=== PATIENT | female | born 1975 | race Caucasian/White ===

== ENCOUNTER 2016-06-20 08:45 | Day surgery (SDC) | payer BC ==
[2016-06-20] MEDS ORDERED: Sodium Chloride 0.9% 10 ML Syringe FLUSH PRN (09:00)
[2016-06-20] MEDS ORDERED: Lactated Ringers 1,000 ML IV SCH (09:00)
--- NOTE | 2016-06-20 09:42 | PCM.PN ---
- General Info Date of Service: 06/20/16 - Review of Systems Systems Review Comment:: 41-year-old female referred for her first screening colonoscopy. She has an increased risk of developing colon polyps because of a family history of this condition in 2 sisters. The patient has been recently asymptomatic. She is medically stable to proceed today with no significant change from her recent history and physical which is reviewed. I discussed the proposed colonoscopy with the patient. Indications and risks reviewed. These included but were not limited to bleeding and GI injury. She agrees to proceed. - Patient Data Vitals - most recent: Last Vital Signs Temp 98.8 F 06/20/16 09:08 Pulse 71 06/20/16 09:08 Resp 20 06/20/16 09:08 BP 120/68 06/20/16 09:08 Pulse Ox 98 06/20/16 09:08 Weight - most recent: 77.564 kg Med Orders - Current: Current Medications Lactated Ringer's (Ringers, Lactated) 1,000 mls @ 125 mls/hr IV ASDIRECTED [facility] Last Admin: 06/20/16 09:30 Dose: 125 mls/hr Sodium Chloride (Saline Flush) 10 ml FLUSH ASDIRECTED PRN PRN Reason: Keep Vein Open - Problem List Review Problem List Initiated/Reviewed/Updated: Yes - Assessment Assessment:: Family history of colon polyps - Plan Plan:: Colonoscopy
[2016-06-20] MEDS ORDERED: Midazolam 1 MG/ML 2 ML SDV ONE ×2 (09:53→09:57)
[2016-06-20] MEDS ORDERED: Propofol 200 MG/20 ML SDV ONE (09:54)
--- NOTE | 2016-06-20 10:59 | PCM.OPNOTE ---
- General Post-Op/Procedure Note Date of Surgery/Procedure: 06/20/16 Operative Procedure(s): Colonoscopy with Polypectomy Findings: 2 small polyps were noted during the exam. One at the splenic flexure and one in the sigmoid colon. The colon otherwise appeared normal. Pre Op Diagnosis: Family history of colon polyps Post-Op Diagnosis: Colon polyps Anesthesia Technique: MAC Primary Surgeon: Faisal Dawson Pathology: Colon polyps Output, Urine Amount: 0 EBL in mLs: 0 Complications: None Condition: Good Free Text/Narrative:: Intake & Output 06/19/16 06/20/16 06/20/16 22:59 06:59 14:59 Intake Total 700 Balance 700
[2016-06-20 11:57] VITALS: BP 108/68
--- NOTE | 2016-06-20 14:21 | OR ---
Date of Procedure: 06/20/2016 PREOPERATIVE DIAGNOSIS: Family history of colon polyps. POSTOPERATIVE DIAGNOSIS: Colon polyps. OPERATION PERFORMED: Colonoscopy with polypectomy. INDICATIONS FOR SURGERY: This 41-year-old female has two siblings who had colon polyps recently removed. This patient comes for her initial screening colonoscopy. FINDINGS: Two polyps are noted during this exam. There is a 4-mm sessile polyp at the splenic flexure and another 4-mm pedunculated polyp at that the sigmoid colon, 30 cm from the anal verge. The remainder of the colon appears normal. PROCEDURE: The patient was taken to the operating room. She was given intravenous sedation, and with her in the left lateral decubitus position, digital rectal exam was performed showing no rectal masses. The Olympus colonoscope was inserted into the rectum. Retroflexed examination of the rectal canal was performed. The scope was then carefully advanced under direct visualization through the entire length of the colon until the cecum was reached. This was somewhat difficult because of the tortuous nature of her colon, but eventually the cecum was able to be reached. Cecal acquisition is confirmed by noting the normal internal cecal anatomy including the appendiceal orifice and ileocecal valve. The light was also noted to transilluminate the abdominal wall in the right lower quadrant. After examining the cecum, the scope was slowly withdrawn sequentially re-examining the colonic segments. The two above-described polyps were identified during withdrawal of the scope, and each polyp is in turn removed with cautery snare as encountered. Each polyp was also retrieved and will be submitted for pathology. There was no sign of any complication during the procedure. After the entire colon and rectum had been fully examined, the scope was removed and the patient was taken from the operating room in satisfactory condition. ESTIMATED BLOOD LOSS: Zero. COMPLICATIONS: None. PROGNOSIS: Good. LIU Dawson MD /[id number]
== END 2016-06-20 11:44 | disposition home or self-care (01) ==
LOC: LL.SDS 08:45
PROVIDERS: ATTEND Surgery
DX: D12.3 Benign neoplasm of transverse colon (principal); K51.40 Inflammatory polyps of colon without complications; I10 Essential (primary) hypertension; F32.9 Major depressive disorder, single episode, unspecified; E78.5 Hyperlipidemia, unspecified; E66.9 Obesity, unspecified; Z98.84 Bariatric surgery status; Z88.0 Allergy status to penicillin; Z88.8 Allergy status to other drugs, medicaments and biological substances; Z98.51 Tubal ligation status; Z98.890 Other specified postprocedural states; Z79.899 Other long term (current) drug therapy
CPT/HCPCS: 45385; J2250; J7120

== ENCOUNTER 2017-06-23 09:18 | Inpatient (IN) | payer BC ==
[2017-06-23] MEDS ORDERED: Iopamidol 612 MG/ML 100 ML Bottle IVPUSH ONE (10:28)
[2017-06-23] MEDS ORDERED: Sodium Chloride 0.9% 10 ML Syringe FLUSH ONE (10:45)
--- NOTE | 2017-06-23 13:25 | PCM.HP ---
H&P History of Present Illness - General Date of Service: 06/23/17 Admit Problem/Dx: Admission Diagnosis/Problem Admission Diagnosis/Problem Abdominal pain Source of Information: Patient - History of Present Illness Initial Comments - Free Text/Narative: 06/23/2017 Patient presents to the clinic with abdominal pain which started 4 days ago, patient thought she was constipated and took some stool softeners but symptoms have gotten worse. Started with fever 2 days ago, up to 102.4 and now pain is much more severe in the mid abdominal area into the RLQ area. Started with N/V this morning. has a history of altered stool patterns, going from constipation to diarrhea. Colonoscopy was done 06/2016 with tubular adenoma polyp removed. No travel outside of the country and spouse is not sick at home. Onset of Symptoms: Reports: Gradual Duration of Symptoms: Reports: Getting Worse Location: Reports: Abdomen Quality: Reports: Sharp, Stabbing Severity: Severe Improves with: Reports: Rest Worsens with: Reports: Medication Associated Symptoms: Reports: Fever/Chills, Loss of Appetite, Nausea/Vomiting Bilateral Abdominal Pain Score (Numeric/FACES): 7 - Related Data Allergies/Adverse Reactions: Allergies Allergy/AdvReac Type Severity Reaction Status Date / Time hydrocodone Allergy Hives Verified 06/23/17 12:52 Penicillins Allergy Hives Verified 06/23/17 12:52 Home Medications: Home Meds Acyclovir [Zovirax] 400 mg PO TID PRN 06/20/16 [History] Escitalopram [Lexapro] 20 mg PO DAILY 06/20/16 [History] Multivitamins [Tab-A-Sarah] 3 tab PO DAILY 06/20/16 [History] Pramipexole Di-HCl [Mirapex] 3 tab PO BEDTIME 06/20/16 [History] buPROPion [Wellbutrin] 100 tab PO DAILY 06/20/16 [History] Past Medical History Cardiovascular History: Reports: Hypertension Other Gastrointestinal History: status post gastric bypass, gallbladder removal, Neurological History: Reports: Migraines Psychiatric History: Reports: Depression Other Psychiatric History: does have the restless leg syndrome - Past Surgical History HEENT Surgical History: Reports: Tonsillectomy Other HEENT Surgeries/Procedures: wisdon teeth removed GI Surgical History: Reports: Cholecystectomy Female Surgical History: Reports: Tubal Ligation Musculoskeletal Surgical History: Reports: Arthroscopic Knee Social & Family History - Family History Cardiac: Reports: CAD GI: Reports: Colon Polyps - Tobacco Use Smoking Status *Q: Former Smoker Years of Tobacco use: 9 Packs/Tins Daily: 1 Used Tobacco, but Quit: Yes Month/Year Tobacco Last Used: 2000 Second Hand Smoke Exposure: No - Caffeine Use Caffeine Use: Reports: None - Recreational Drug Use Recreational Drug Use: No H&P Review of Systems - Review of Systems: Review Of Systems: See Below General: Reports: Fever, Weakness, Decreased Appetite HEENT: Reports: No Symptoms Pulmonary: Reports: No Symptoms Cardiovascular: Reports: No Symptoms Gastrointestinal: Reports: Abdominal Pain, Nausea, Vomiting Genitourinary: Reports: No Symptoms Musculoskeletal: Reports: No Symptoms Skin: Reports: No Symptoms Psychiatric: Reports: No Symptoms Neurological: Reports: No Symptoms Hematologic/Lymphatic: Reports: No Symptoms Immunologic: Reports: No Symptoms Exam - Exam Exam: See Below - Vital Signs Vital Signs: Last Vital Signs Temp 98.6 F 06/23/17 13:05 Pulse 60 06/23/17 13:05 Resp 18 06/23/17 13:05 BP 113/60 06/23/17 13:05 Pulse Ox 95 06/23/17 13:05 Weight: 182 lb 3.2 oz - Exam General: Alert, Oriented, Cooperative, Moderate Distress HEENT: Conjunctiva Clear, EACs Clear, EOMI Neck: Supple, Trachea Midline Lungs: Clear to Auscultation, Normal Respiratory Effort Cardiovascular: Regular Rate, Regular Rhythm GI/Abdominal Exam: Normal Bowel Sounds, Soft, No Organomegaly, No Distention, Guarding, Tender Peripheral Pulses: 2+: Dorsalis Pedis (L), Dorsalis Pedis (R) Skin: Warm, Dry, Intact Neuro Extensive - Mental Status: Alert, Oriented x3, Normal Mood/Affect, Normal Cognition, Memory Intact Neuro Extensive - Motor, Sensory, Reflexes: CN II-XII Intact, Normal Gait, Normal Reflexes Psychiatric: Alert, Normal Affect, Normal Mood *Q Meaningful Use (ADM) - VTE *Q VTE Criteria *Q: - Stroke *Q Stroke Criteria *Q: - AMI *Q AMI Criteria *Q: - Problem List (1) Inflammatory bowel disease SNOMED Code(s): 16177529 ICD Code: K52.9 - NONINFECTIVE GASTROENTERITIS AND COLITIS, UNSPECIFIED Status: Acute Current Visit: Yes (2) Fever SNOMED Code(s): 962635295 ICD Code: R50.9 - FEVER, UNSPECIFIED Status: Acute Current Visit: Yes Qualifiers: Fever type: due to other condition Qualified Code(s): R50.81 - Fever presenting with conditions classified elsewhere (3) Dehydration SNOMED Code(s): 00161692 ICD Code: E86.0 - DEHYDRATION Status: Acute Current Visit: Yes Problem List Initiated/Reviewed/Updated: Yes Orders Last 24hrs: Active Orders 24 hr Category Date Time Status Patient Status [ADT] Routine ADT 06/23/17 13:05 Ordered Ambulate [RC] ASDIRECTED Care 06/23/17 12:52 Ordered Intake and Output [RC] QSHIFT Care 06/23/17 13:06 Ordered May Shower [RC] ASDIRECTED Care 06/23/17 12:52 Ordered Oxygen Therapy [RC] PRN Care 06/23/17 13:05 Ordered Peripheral IV Care [RC] . DIRECTED Care 06/23/17 13:06 Ordered VTE/DVT Education [RC] PER UNIT ROUTINE Care 06/23/17 13:05 Ordered Vital Signs [RC] Q4H Care 06/23/17 13:05 Ordered Clear Liquid Diet [DIET] Diet 06/23/17 Dinner Ordered Abdomen Pelvis w Cont [CT] Stat Exams 06/23/17 10:00 Taken C-REACTIVE PROTEIN [CHEM] DAILY Lab 06/24/17 05:11 Ordered C-REACTIVE PROTEIN [CHEM] DAILY Lab 06/25/17 05:11 Ordered C-REACTIVE PROTEIN [CHEM] DAILY Lab 06/26/17 05:11 Ordered C-REACTIVE PROTEIN [CHEM] DAILY Lab 06/27/17 05:11 Ordered CBC WITH AUTO DIFF [HEME] DAILY Lab 06/24/17 05:11 Ordered CBC WITH AUTO DIFF [HEME] DAILY Lab 06/25/17 05:11 Ordered CBC WITH AUTO DIFF [HEME] DAILY Lab 06/26/17 05:11 Ordered CBC WITH AUTO DIFF [HEME] DAILY Lab 06/27/17 05:11 Ordered COMPREHENSIVE METABOLIC PN,CMP [CHEM] DAILY Lab 06/24/17 05:11 Ordered COMPREHENSIVE METABOLIC PN,CMP [CHEM] DAILY Lab 06/25/17 05:11 Ordered COMPREHENSIVE METABOLIC PN,CMP [CHEM] DAILY Lab 06/26/17 05:11 Ordered COMPREHENSIVE METABOLIC PN,CMP [CHEM] DAILY Lab 06/27/17 05:11 Ordered STOOL CULTURE [MREF] Routine Lab 06/23/17 13:13 Ordered Ciprofloxacin in D5W [Cipro in D5W 400 MG/200 ML] 400 Med 06/23/17 20:00 Ordered mg Premix Bag 1 bag IV Q12HR Famotidine [Pepcid] Med 06/23/17 13:30 Ordered 20 mg IVPUSH BID Ketorolac [Toradol] Med 06/23/17 13:15 Ordered 30 mg IVPUSH Q6H Lactated Ringers [Ringers, Lactated] 1,000 ml Med 06/23/17 13:00 Ordered IV ASDIRECTED Ondansetron [Zofran] Med 06/23/17 12:52 Ordered 4 mg IVPUSH Q6H PRN Sodium Chloride 0.9% [Saline Flush] Med 06/23/17 12:52 Ordered 10 ml FLUSH ASDIRECTED PRN fentaNYL [Sublimaze] Med 06/23/17 13:11 Ordered 50 mcg IVPUSH Q4H PRN metroNIDAZOLE/Normal Saline [Flagyl 500 MG in NS 100 ML Med 06/23/17 13:15 Ordered ] 500 mg Premix Bag 1 bag IV Q8H Peripheral IV Insertion Adult [OM.PC] Routine Oth 06/23/17 12:52 Ordered Saline Lock Insert [OM.PC] Routine Oth 06/23/17 12:52 Ordered Resuscitation Status Routine Resus Stat 06/23/17 12:52 Ordered Medication Orders Famotidine (Pepcid) 20 mg IVPUSH BID LING Fentanyl (Sublimaze) 50 mcg IVPUSH Q4H PRN PRN Reason: Pain Lactated Ringer's (Ringers, Lactated) 1,000 mls @ 100 mls/hr IV ASDIRECTED [facility] Ciprofloxacin/Dextrose 400 mg/ (Premix) 200 mls @ 200 mls/hr IV Q12HR [facility] Metronidazole 500 mg/ Premix 100 mls @ 100 mls/hr IV Q8H [facility] Ketorolac Tromethamine (Toradol) 30 mg IVPUSH Q6H [facility] Stop: 06/28/17 13:10 Ondansetron HCl (Zofran) 4 mg IVPUSH Q6H PRN PRN Reason: Nausea/Vomiting Sodium Chloride (Saline Flush) 10 ml FLUSH ASDIRECTED PRN PRN Reason: Keep Vein Open Assessment/Plan Comment:: 06/23/2017 Patient is admitted to the hospital, had CT scan radiologist states IBD infectious vs Crohn's. Will started IV flagyl and Cipro, wait with steroids. Patient may need upper GI with SB follow through. Recheck labs in the morning. Clear liquids. Will order stool culture. Started on IV Toradol scheduled for the pain. Discussed with Dr Samantha Cisse. Patient needing inpatient status due to IBD infectious and IV fluids for dehydration. Patient agreed to plan of care and hospitalization in [place]. Leann Castorena,BASIC SCIENCES PROFESSOR
[2017-06-23] MEDS: metroNIDAZOLE/Normal Saline 500 MG in Premix Bag 1 BAG IV SCH ×2 (13:44→22:04)
[2017-06-23] MEDS: Famotidine 20 MG/2 ML SDV IVPUSH SCH (13:45)
[2017-06-23] MEDS: Ketorolac 30 MG/ML SDV IVPUSH SCH ×2 (13:45→19:25)
[2017-06-23] MEDS: Sodium Chloride 0.9% 10 ML Syringe FLUSH PRN ×9 (13:55→22:35)
[2017-06-23] MEDS: Ondansetron 4 MG/2 ML SDV IVPUSH PRN (14:05)
[2017-06-23] MEDS ORDERED: Ciprofloxacin in D5W 400 MG in Premix Bag 1 BAG IV SCH ×2 (15:00)
[2017-06-23] MEDS ORDERED: diphenhydrAMINE 25 MG Cap PO PRN (16:21)
[2017-06-23] MEDS ORDERED: diphenhydrAMINE/Zinc Acetate 2% Crm 28.4 GM Tube TOP PRN (16:22)
[2017-06-23] MEDS: Lactated Ringers 1,000 ML IV SCH (16:34)
[2017-06-23] MEDS: fentaNYL 100 MCG/2 ML SDV IVPUSH PRN ×2 (16:34→20:31)
[2017-06-23] MEDS ORDERED: Pramipexole 0.125 MG Tab PO SCH (20:00)
[2017-06-23] MEDS ORDERED: Escitalopram 20 MG Tab PO SCH (21:00)
[2017-06-23] MEDS ORDERED: fentaNYL 100 MCG/2 ML SDV IVPUSH ONE (22:15)
[2017-06-24] MEDS: Famotidine 20 MG/2 ML SDV IVPUSH SCH ×2 (03:36→13:42)
[2017-06-24] MEDS: Ketorolac 30 MG/ML SDV IVPUSH SCH ×3 (03:37→13:42)
[2017-06-24] MEDS: Sodium Chloride 0.9% 10 ML Syringe FLUSH PRN ×10 (03:43→16:10)
[2017-06-24] MEDS: Ondansetron 4 MG/2 ML SDV IVPUSH PRN ×2 (03:47→16:10)
[2017-06-24] MEDS: Lactated Ringers 1,000 ML IV SCH (03:54)
[2017-06-24] MEDS: fentaNYL 100 MCG/2 ML SDV IVPUSH PRN ×3 (04:01→12:46)
[2017-06-24] MEDS: metroNIDAZOLE/Normal Saline 500 MG in Premix Bag 1 BAG IV SCH ×2 (05:06→13:43)
[2017-06-24 07:53] LABS: CHLORIDE,CL 106 mmol/L (98-107); SODIUM,NA 141 mmol/L (136-145)
[2017-06-24] MEDS ORDERED: buPROPion 100 MG Tab PO SCH (08:00)
--- NOTE | 2017-06-24 14:26 | PCM.PN ---
- General Info Date of Service: 06/24/17 Admission Dx/Problem (Free Text): Admission Diagnosis/Problem Admission Diagnosis/Problem Abdominal pain Functional Status: Reports: Pain Controlled (receiving scheduled IV toradol and prn fentanyl IV) - Review of Systems General: Reports: Weakness HEENT: Reports: No Symptoms Pulmonary: Reports: No Symptoms Cardiovascular: Reports: No Symptoms Gastrointestinal: Reports: Abdominal Pain, Decreased Appetite (continues with pain with drinking liquids in the stomach area) Genitourinary: Reports: No Symptoms Musculoskeletal: Reports: No Symptoms Skin: Reports: No Symptoms Neurological: Reports: No Symptoms Psychiatric: Reports: No Symptoms - Patient Data Vitals - Most Recent: Last Vital Signs Temp 97.8 F 06/24/17 11:17 Pulse 56 L 06/24/17 11:17 Resp 15 06/24/17 11:17 BP 118/66 06/24/17 11:17 Pulse Ox 95 06/24/17 11:17 Weight - Most Recent: 182 lb 3.216 oz I&O - Last 24 Hours: Intake & Output 06/23/17 06/24/17 06/24/17 22:59 06:59 14:59 Intake Total 770 200 5 Output Total 500 Balance 770 -300 5 Lab Results Last 24 Hours: Laboratory Results - last 24 hr 06/24/17 06/24/17 Range/Units 07:17 07:17 WBC 5.6 (4.0-10.2) K/uL RBC 3.82 (3.77-5.09) M/uL Hgb 10.4 L (11.7-15.5) g/dL Hct 33.1 L (34.0-46.0) % MCV 86.6 (84.0-98.0) fL MCH 27.2 L (28.2-33.3) pg MCHC 31.4 L (31.7-36.0) g/dL RDW 13.6 (11.2-14.1) % Plt Count 236 (150-350) K/uL Neut % (Auto) 42.5 L (45.0-80.0) % Lymph % (Auto) 44.0 (10.0-50.0) % [place] % (Auto) 10.3 (2.0-14.0) % Eos % (Auto) 2.7 (0.0-5.0) % Baso % (Auto) 0.5 (0.0-2.0) % Neut # (Auto) 2.40 (1.40-7.00) K/uL Lymph # (Auto) 2.48 (0.50-3.50) K/uL [place] # (Auto) 0.58 (0.00-1.00) K/uL Eos # (Auto) 0.15 (0.00-0.50) K/uL Baso # (Auto) 0.03 (0.00-0.20) K/uL Sodium 141 (136-145) mmol/L Potassium 4.3 (3.5-5.1) mmol/L Chloride 106 (98-107) mmol/L Carbon Dioxide 30.4 (21.0-32.0) mmol/L BUN 10 (7-18) mg/dL Creatinine 0.88 (0.51-1.17) mg/dL Est Cr Clr Drug Dosing 77.59 mL/min Estimated GFR (MDRD) > 60 mL/min Glucose 87 (74-106) mg/dL Calcium 8.3 L (8.5-10.1) mg/dL Total Bilirubin 0.2 (0.2-1.0) mg/dL AST 12 L (15-37) U/L ALT 12 (12-78) U/L Alkaline Phosphatase 89 (46-116) IU/L C-Reactive Protein 2.2 H (<=0.9) mg/dL Total Protein 6.7 (6.4-8.2) g/dL Albumin 2.9 L (3.4-5.0) g/dL Med Orders - Current: Current Medications Bupropion HCl (Wellbutrin) 100 mg PO DAILY [facility] Last Admin: 06/24/17 07:48 Dose: 100 mg Diphenhydramine HCl (Benadryl) 25 mg PO Q4H PRN PRN Reason: itch Last Admin: 06/23/17 16:34 Dose: 25 mg Escitalopram Oxalate (Lexapro) 20 mg PO BEDTIME [facility] Last Admin: 06/23/17 22:04 Dose: 20 mg Famotidine (Pepcid) 20 mg IVPUSH Q12H [facility] Last Admin: 06/24/17 13:42 Dose: 20 mg Fentanyl (Sublimaze) 50 mcg IVPUSH Q4H PRN PRN Reason: Pain Last Admin: 06/24/17 12:46 Dose: 50 mcg Lactated Ringer's (Ringers, Lactated) 1,000 mls @ 100 mls/hr IV ASDIRECTED [facility] Last Admin: 06/24/17 03:54 Dose: 100 mls/hr Metronidazole 500 mg/ Premix 100 mls @ 100 mls/hr IV Q8H [facility] Last Admin: 06/24/17 13:43 Dose: 100 mls/hr Ketorolac Tromethamine (Toradol) 30 mg IVPUSH Q6H [facility] Stop: 06/28/17 14:01 Last Admin: 06/24/17 13:42 Dose: 30 mg Ondansetron HCl (Zofran) 4 mg IVPUSH Q6H PRN PRN Reason: Nausea/Vomiting Last Admin: 06/24/17 03:47 Dose: 4 mg Pramipexole Dihydrochloride (Mirapex) 0.375 mg PO BEDTIME [facility] Last Admin: 06/23/17 19:25 Dose: 0.375 mg Sodium Chloride (Saline Flush) 10 ml FLUSH ASDIRECTED PRN PRN Reason: Keep Vein Open Last Admin: 06/24/17 13:52 Dose: 10 ml Zinc Acetate/Diphenhydramine (Banophen Anti-Itch 2% Crm) 0 gm TOP QID PRN PRN Reason: Itching Discontinued Medications Fentanyl (Sublimaze) 100 mcg IVPUSH ONETIME ONE Stop: 06/23/17 22:16 Last Admin: 06/23/17 22:35 Dose: 100 mcg Ciprofloxacin/Dextrose 400 mg/ (Premix) 200 mls @ 200 mls/hr IV Q12H [facility] Last Admin: 06/23/17 15:18 Dose: 200 mls/hr Iopamidol (Isovue-300 (61%)) 100 ml IVPUSH ONETIME ONE Stop: 06/23/17 10:29 Last Admin: 06/23/17 10:56 Dose: 100 ml Sodium Chloride (Saline Flush) 10 ml FLUSH ONETIME ONE Stop: 06/23/17 10:46 Last Admin: 06/23/17 10:56 Dose: 10 ml - Exam General: Alert, Oriented, Cooperative, No Acute Distress HEENT: Pupils Equal, Pupils Reactive, EOMI, Mucous Membr. Moist/[place] Neck: Supple Lungs: Clear to Auscultation, Normal Respiratory Effort Cardiovascular: Regular Rate, Regular Rhythm GI/Abdominal Exam: Normal Bowel Sounds, Soft, Tender (tender to umbilicus area with palpation) Extremities: Normal Inspection, Normal Range of Motion, Non-Tender, No Pedal Edema, Normal Capillary Refill Skin: Warm, Intact Psy/Mental Status: Alert, Normal Affect, Normal Mood - Problem List & Annotations (1) Inflammatory bowel disease SNOMED Code(s): 35380135 Status: Acute Current Visit: Yes Annotation/Comment:: infectious IBD (2) Fever SNOMED Code(s): 479263739 Code(s): R50.9 - FEVER, UNSPECIFIED Status: Acute Current Visit: Yes Qualifiers: Fever type: due to other condition Qualified Code(s): R50.81 - Fever presenting with conditions classified elsewhere (3) Dehydration SNOMED Code(s): 19264086 Code(s): E86.0 - DEHYDRATION Status: Acute Current Visit: Yes - Problem List Review Problem List Initiated/Reviewed/Updated: Yes - My Orders Last 24 Hours: My Active Orders 06/23/17 14:00 Famotidine [Pepcid] 20 mg IVPUSH Q12H Ketorolac [Toradol] 30 mg IVPUSH Q6H metroNIDAZOLE/Normal Saline [Flagyl 500 MG in NS 100 ML] 500 mg Premix Bag 1 bag IV Q8H 06/23/17 20:00 Pramipexole [Mirapex] 0.375 mg PO BEDTIME 06/23/17 21:00 Escitalopram [Lexapro] 20 mg PO BEDTIME 06/23/17 Dinner Clear Liquid Diet [DIET] 06/24/17 08:00 buPROPion [Wellbutrin] 100 mg PO DAILY 06/25/17 05:11 C-REACTIVE PROTEIN [CHEM] DAILY CBC WITH AUTO DIFF [HEME] DAILY COMPREHENSIVE METABOLIC PN,CMP [CHEM] DAILY 06/26/17 05:11 C-REACTIVE PROTEIN [CHEM] DAILY CBC WITH AUTO DIFF [HEME] DAILY COMPREHENSIVE METABOLIC PN,CMP [CHEM] DAILY 06/27/17 05:11 C-REACTIVE PROTEIN [CHEM] DAILY CBC WITH AUTO DIFF [HEME] DAILY COMPREHENSIVE METABOLIC PN,CMP [CHEM] DAILY - Plan Plan:: 06/23/2017 Patient is admitted to the hospital, had CT scan radiologist states IBD infectious vs Crohn's. Will started IV flagyl and Cipro, wait with steroids. Patient may need upper GI with SB follow through. Recheck labs in the morning. Clear liquids. Will order stool culture. Started on IV Toradol scheduled for the pain. Discussed with Dr Samantha Cisse. Patient needing inpatient status due to IBD infectious and IV fluids for dehydration. Patient agreed to plan of care and hospitalization in [place]. Leann Castorena CNP 06/24/2017 Patient continues to have pain around the umbilicus site, CT scan showed possible infectious enteritis. No fever through the night. Patient tried clear liquids and immediately had epigastric pain. Had loose stool around 2pm today, collected for further testing. Labs reviewed with patient and spouse, requesting to be transferred to [place]. Called [facility], Dr Francois accepted the patient for transfer. Will sent per private care with spouse. patient needing further GI work up. Leann Castorena,SYEDA
--- NOTE | 2017-06-24 14:31 | PCM.DCSUM1 ---
Discharge Summary - Hospital Course Free Text/Narrative:: Patient was admitted for severe abdominal pain, Ct scan showing infectious enteritis. Started on IV Cipro and Flagyl, Patient had red streaking up her arm with Cipr after the first dose. Pain control started with scheduled IV Toradol and IV Fentanyl. - Discharge Data Discharge Date: 06/24/17 Discharge Disposition: DC/Tfer to Acute Hospital 02 Condition: Fair - Discharge Diagnosis/Problem(s) (1) Inflammatory bowel disease SNOMED Code(s): 91313639 Status: Acute Current Visit: Yes Problem Details: infectious IBD (2) Fever SNOMED Code(s): 442389792 ICD Code: R50.9 - FEVER, UNSPECIFIED Status: Acute Current Visit: Yes Qualifiers: Fever type: due to other condition Qualified Code(s): R50.81 - Fever presenting with conditions classified elsewhere (3) Dehydration SNOMED Code(s): 68492665 ICD Code: E86.0 - DEHYDRATION Status: Acute Current Visit: Yes - Patient Instructions Diet: Clear Liquid Diet Driving: Do Not Drive Showering/Bathing: May Shower - Discharge Plan Home Medications: Home Meds Acyclovir [Zovirax] 400 mg PO TID PRN 06/20/16 [History] Escitalopram [Lexapro] 20 mg PO DAILY 06/20/16 [History] Multivitamins [Tab-A-Sarah] 3 tab PO DAILY 06/20/16 [History] Pramipexole Di-HCl [Mirapex] 3 tab PO BEDTIME 06/20/16 [History] buPROPion [Wellbutrin] 100 tab PO DAILY 06/20/16 [History] - Discharge Summary/Plan Comment DC Time >30 min.: No Discharge Summary/Plan Comment: Patient is transferred to [facility] to care of Dr Stockton for further GI workup. Patient and spouse verbalized understanding and requested the transfer to [place], as the patient continues to have pain. Will send by private car, spouse with bring the patient to [facility]. Leann Castorena CNP - Patient Data Vitals - Most Recent: Last Vital Signs Temp 97.8 F 06/24/17 11:17 Pulse 56 L 06/24/17 11:17 Resp 15 06/24/17 11:17 BP 118/66 06/24/17 11:17 Pulse Ox 95 06/24/17 11:17 Weight - Most Recent: 182 lb 3.216 oz I&O - Last 24 hours: Intake & Output 06/23/17 06/24/17 06/24/17 22:59 06:59 14:59 Intake Total 770 200 5 Output Total 500 Balance 770 -300 5 Lab Results - Last 24 hrs: Laboratory Results - last 24 hr 06/24/17 06/24/17 Range/Units 07:17 07:17 WBC 5.6 (4.0-10.2) K/uL RBC 3.82 (3.77-5.09) M/uL Hgb 10.4 L (11.7-15.5) g/dL Hct 33.1 L (34.0-46.0) % MCV 86.6 (84.0-98.0) fL MCH 27.2 L (28.2-33.3) pg MCHC 31.4 L (31.7-36.0) g/dL RDW 13.6 (11.2-14.1) % Plt Count 236 (150-350) K/uL Neut % (Auto) 42.5 L (45.0-80.0) % Lymph % (Auto) 44.0 (10.0-50.0) % [place] % (Auto) 10.3 (2.0-14.0) % Eos % (Auto) 2.7 (0.0-5.0) % Baso % (Auto) 0.5 (0.0-2.0) % Neut # (Auto) 2.40 (1.40-7.00) K/uL Lymph # (Auto) 2.48 (0.50-3.50) K/uL [place] # (Auto) 0.58 (0.00-1.00) K/uL Eos # (Auto) 0.15 (0.00-0.50) K/uL Baso # (Auto) 0.03 (0.00-0.20) K/uL Sodium 141 (136-145) mmol/L Potassium 4.3 (3.5-5.1) mmol/L Chloride 106 (98-107) mmol/L Carbon Dioxide 30.4 (21.0-32.0) mmol/L BUN 10 (7-18) mg/dL Creatinine 0.88 (0.51-1.17) mg/dL Est Cr Clr Drug Dosing 77.59 mL/min Estimated GFR (MDRD) > 60 mL/min Glucose 87 (74-106) mg/dL Calcium 8.3 L (8.5-10.1) mg/dL Total Bilirubin 0.2 (0.2-1.0) mg/dL AST 12 L (15-37) U/L ALT 12 (12-78) U/L Alkaline Phosphatase 89 (46-116) IU/L C-Reactive Protein 2.2 H (<=0.9) mg/dL Total Protein 6.7 (6.4-8.2) g/dL Albumin 2.9 L (3.4-5.0) g/dL Med Orders - Current: Current Medications Bupropion HCl (Wellbutrin) 100 mg PO DAILY [facility] Last Admin: 06/24/17 07:48 Dose: 100 mg Diphenhydramine HCl (Benadryl) 25 mg PO Q4H PRN PRN Reason: itch Last Admin: 06/23/17 16:34 Dose: 25 mg Escitalopram Oxalate (Lexapro) 20 mg PO BEDTIME [facility] Last Admin: 06/23/17 22:04 Dose: 20 mg Famotidine (Pepcid) 20 mg IVPUSH Q12H [facility] Last Admin: 06/24/17 13:42 Dose: 20 mg Fentanyl (Sublimaze) 50 mcg IVPUSH Q4H PRN PRN Reason: Pain Last Admin: 06/24/17 12:46 Dose: 50 mcg Lactated Ringer's (Ringers, Lactated) 1,000 mls @ 100 mls/hr IV ASDIRECTED [facility] Last Admin: 06/24/17 03:54 Dose: 100 mls/hr Metronidazole 500 mg/ Premix 100 mls @ 100 mls/hr IV Q8H [facility] Last Admin: 06/24/17 13:43 Dose: 100 mls/hr Ketorolac Tromethamine (Toradol) 30 mg IVPUSH Q6H [facility] Stop: 06/28/17 14:01 Last Admin: 06/24/17 13:42 Dose: 30 mg Ondansetron HCl (Zofran) 4 mg IVPUSH Q6H PRN PRN Reason: Nausea/Vomiting Last Admin: 06/24/17 03:47 Dose: 4 mg Pramipexole Dihydrochloride (Mirapex) 0.375 mg PO BEDTIME LING Last Admin: 06/23/17 19:25 Dose: 0.375 mg Sodium Chloride (Saline Flush) 10 ml FLUSH ASDIRECTED PRN PRN Reason: Keep Vein Open Last Admin: 06/24/17 13:52 Dose: 10 ml Zinc Acetate/Diphenhydramine (Banophen Anti-Itch 2% Crm) 0 gm TOP QID PRN PRN Reason: Itching Discontinued Medications Fentanyl (Sublimaze) 100 mcg IVPUSH ONETIME ONE Stop: 06/23/17 22:16 Last Admin: 06/23/17 22:35 Dose: 100 mcg Ciprofloxacin/Dextrose 400 mg/ (Premix) 200 mls @ 200 mls/hr IV Q12H [facility] Last Admin: 06/23/17 15:18 Dose: 200 mls/hr Iopamidol (Isovue-300 (61%)) 100 ml IVPUSH ONETIME ONE Stop: 06/23/17 10:29 Last Admin: 06/23/17 10:56 Dose: 100 ml Sodium Chloride (Saline Flush) 10 ml FLUSH ONETIME ONE Stop: 06/23/17 10:46 Last Admin: 06/23/17 10:56 Dose: 10 ml *Q Meaningful Use (DIS) - VTE *Q VTE Criteria *Q: - Stroke *Q Stroke Criteria *Q: - AMI *Q AMI Criteria *Q:
[2017-06-24 16:02] VITALS: BP 112/67
== END 2017-06-24 16:20 | DRG 249 ==
LOC: LL.CT 09:18 → LL.MS 12:03
PROVIDERS: ADMIT Nurse Practitioner Family; ATTEND Family Medicine
DX: A09 Infectious gastroenteritis and colitis, unspecified (principal); R50.9 Fever, unspecified; E86.0 Dehydration; I10 Essential (primary) hypertension; Z88.0 Allergy status to penicillin; Z88.8 Allergy status to other drugs, medicaments and biological substances; Z79.899 Other long term (current) drug therapy; Z98.84 Bariatric surgery status; Z87.891 Personal history of nicotine dependence
CPT/HCPCS: 36415; 74177; 80053; 85025; 86140; 87045; 87046; A9270-GY; J0744; J1885; J2405; J3010; J7050; J7120; Q9967; S0028

== ENCOUNTER 2017-12-21 00:51 | Emergency (ER) | payer BC ==
[2017-12-21 01:08] VITALS: BP 118/64
[2017-12-21] MEDS ORDERED: Sodium Chloride 0.9% 1,000 ML IV ONE (01:14)
[2017-12-21] MEDS ORDERED: diphenhydrAMINE 50 MG/ML SDV IVPUSH ONE (01:14)
[2017-12-21] MEDS ORDERED: Ondansetron 4 MG/2 ML SDV IVPUSH ONE (01:15)
[2017-12-21] MEDS ORDERED: Ketorolac 30 MG/ML SDV IVPUSH ONE (01:15)
--- NOTE | 2017-12-21 01:19 | EDM.PDOC ---
ED HPI GENERAL MEDICAL PROBLEM - General Chief Complaint: Headache Stated Complaint: MIGRAINE Time Seen by Provider: 12/21/17 01:11 Source of Information: Reports: Patient History Limitations: Reports: No Limitations - History of Present Illness INITIAL COMMENTS - FREE TEXT/NARRATIVE: Pt with left sided CANNON Goes from front to back of head Has hx/o migraines in the past Has photophobia Has nausea and emesis Headache Pain Score (Numeric/FACES): 10 - Related Data Allergies Allergy/AdvReac Type Severity Reaction Status Date / Time ciprofloxacin Allergy Hives Verified 12/21/17 00:52 hydrocodone Allergy Hives Verified 12/21/17 00:52 Penicillins Allergy Hives Verified 12/21/17 00:52 Home Meds: Home Meds Acyclovir [Zovirax] 400 mg PO TID PRN 06/20/16 [History] Escitalopram [Lexapro] 20 mg PO DAILY 06/20/16 [History] Multivitamins [Tab-A-Sarah] 3 tab PO DAILY 06/20/16 [History] Pramipexole Di-HCl [Mirapex] 3 tab PO BEDTIME 06/20/16 [History] buPROPion [Wellbutrin] 100 mg PO DAILY 06/20/16 [History] Non-Formulary Medication [NF Drug] 1 tab PO ASDIRECTED PRN 12/21/17 [History] Promethazine [Phenergan] 25 mg PO ASDIRECTED PRN 12/21/17 [History] Past Medical History Cardiovascular History: Reports: Hypertension Other Gastrointestinal History: status post gastric bypass, gallbladder removal, Neurological History: Reports: Migraines Psychiatric History: Reports: Depression Other Psychiatric History: does have the restless leg syndrome - Past Surgical History HEENT Surgical History: Reports: Tonsillectomy Other HEENT Surgeries/Procedures: wisdon teeth removed GI Surgical History: Reports: Cholecystectomy Female Surgical History: Reports: Tubal Ligation Musculoskeletal Surgical History: Reports: Arthroscopic Knee Social & Family History - Family History Cardiac: Reports: CAD GI: Reports: Colon Polyps - Caffeine Use Caffeine Use: Reports: None ED ROS GENERAL - Review of Systems Review Of Systems: See Below GI/Abdominal: Reports: Nausea Neurological: Reports: Headache - Physical Exam Exam: See Below General Appearance: Moderate Distress Throat/Mouth: Normal Oropharynx Head Exam: Atraumatic Neck: Supple Neuro Exam (Abbreviated): Alert, Oriented, No Motor/Sensory Deficits Course - Vital Signs Last Recorded V/S: Last Vital Signs Temp 37.0 C 12/21/17 01:07 Pulse 63 12/21/17 01:07 Resp 18 12/21/17 01:07 BP 118/64 12/21/17 01:07 Pulse Ox 100 12/21/17 01:07 - Orders/Labs/Meds Orders: Active Orders 24 hr Category Date Time Status Ketorolac [Toradol] Med 12/21/17 01:15 Once 30 mg IVPUSH ONETIME ONE Ondansetron [Zofran] Med 12/21/17 01:15 Once 4 mg IVPUSH ONETIME ONE Sodium Chloride 0.9% [Normal Saline] 1,000 ml Med 12/21/17 01:14 Ordered IV .BOLUS diphenhydrAMINE [Benadryl] Med 12/21/17 01:14 Once 50 mg IVPUSH ONETIME ONE - Re-Assessments/Exams Free Text/Narrative Re-Assessment/Exam: 12/21/17 01:17 Pt given Toradol 30mg IV, Zofran 4 mg IV, Benadryl 50 mg IV and NS 1 L in ER Departure - Departure Time of Disposition: 02:30 Disposition: Home, Self-Care 01 Condition: Fair Clinical Impression: Migraine - Discharge Information *PRESCRIPTION DRUG MONITORING PROGRAM REVIEWED*: Not Applicable Instructions: Recurrent Migraine Headache, [id number] Referrals: Patricia Gallegos PA [Primary Care Provider] - Additional Instructions: Follow up in clinic - My Orders Last 24 Hours: My Active Orders 12/21/17 01:14 Sodium Chloride 0.9% [Normal Saline] 1,000 ml IV .BOLUS diphenhydrAMINE [Benadryl] 50 mg IVPUSH ONETIME ONE 12/21/17 01:15 Ketorolac [Toradol] 30 mg IVPUSH ONETIME ONE Ondansetron [Zofran] 4 mg IVPUSH ONETIME ONE - Assessment/Plan Last 24 Hours: My Active Orders 12/21/17 01:14 Sodium Chloride 0.9% [Normal Saline] 1,000 ml IV .BOLUS diphenhydrAMINE [Benadryl] 50 mg IVPUSH ONETIME ONE 12/21/17 01:15 Ketorolac [Toradol] 30 mg IVPUSH ONETIME ONE Ondansetron [Zofran] 4 mg IVPUSH ONETIME ONE
== END 2017-12-21 02:30 | disposition home or self-care (01) ==
LOC: LL.ED 00:51
DX: G43.909 Migraine, unspecified, not intractable, without status migrainosus (principal); Z79.899 Other long term (current) drug therapy; Z88.1 Allergy status to other antibiotic agents; Z88.0 Allergy status to penicillin
CPT/HCPCS: 96361; 96374; 96375; 99283; J1200; J1885; J2405; J7030

== ENCOUNTER → 2019-02-10 | Outpatient (CLI) | payer BC | LOC: LL.US 12:56 | PROVIDERS: ATTEND Physician Assistant | DX: Z12.31 Encounter for screening mammogram for malignant neoplasm of breast (principal); R10.2 Pelvic and perineal pain; G89.29 Other chronic pain; R93.89 Abnormal findings on diagnostic imaging of other specified body structures; N83.292 Other ovarian cyst, left side | CPT/HCPCS: 76830; 76856; 77063; 77067 ==

== ENCOUNTER 2019-06-20 21:47 | Emergency (ER) | payer BC ==
[2019-06-20] MEDS ORDERED: 50% Dextrose in Water 50 ML Syringe ONE (22:16)
[2019-06-20] MEDS ORDERED: Sodium Chloride 0.9% 10 ML Syringe FLUSH PRN (22:21)
[2019-06-20] MEDS ORDERED: Sodium Chloride 0.9% 1,000 ML IV ONE (22:23)
[2019-06-20] MEDS ORDERED: Ondansetron 4 MG/2 ML SDV IVPUSH ONE (22:23)
[2019-06-20 22:34] LABS: PTT,PARTIAL THROMBOPLSTIN TIME 23.6 SEC (24.5-32.8)
[2019-06-20 22:42] LABS: CHLORIDE,CL 105 mmol/L (98-107); SODIUM,NA 142 mmol/L (136-145)
[2019-06-20] MEDS ORDERED: Promethazine 25 MG/ML SDV IM ONE (22:45)
[2019-06-20] MEDS ORDERED: Meclizine 25 MG Tab PO ONE (22:51)
--- NOTE | 2019-06-20 23:26 | EDM.PDOC ---
ED HPI GENERAL MEDICAL PROBLEM - General Chief Complaint: Neurological Problem Stated Complaint: dizziness, vision blurry Time Seen by Provider: 06/20/19 22:06 Source of Information: Reports: Patient, Family History Limitations: Reports: No Limitations - History of Present Illness INITIAL COMMENTS - FREE TEXT/NARRATIVE: Patient complains of sudden dizziness/blurry vision/not feeling well that started around 6pm. Unable to walk straight/leans to left. No history of similar episodes in past. Feels better laying down. Sitting up and moving head make her feel worse. Some nausea, no emesis. Denies head injury/URI/ear pain or ear drainage. When asked to describe the vision change she denied any visual loss but felt like things were spinning. Did start Buspirone last Friday. No other med changes/new supplements. Denies illicit drug use. Also on Escitalopram and Pramipexole. No fevers/chills. No pain complaint/headache/body aches. No SOB/cough/respiratory changes. No palpitations or chest pain. Denies bowel changes/blood in stool or urine. Denies urinary changes. No focal weakness or numbness of limbs. - Related Data Allergies Allergy/AdvReac Type Severity Reaction Status Date / Time ciprofloxacin Allergy Hives Verified 12/21/17 00:52 hydrocodone Allergy Hives Verified 12/21/17 00:52 Penicillins Allergy Hives Verified 12/21/17 00:52 Home Meds: Home Meds Acyclovir [Zovirax] 400 mg PO TID PRN 06/20/16 [History] Escitalopram [Lexapro] 20 mg PO DAILY 06/20/16 [History] Multivitamins [Tab-A-Sarah] 3 tab PO DAILY 06/20/16 [History] Pramipexole Di-HCl [Mirapex] 3 tab PO BEDTIME 06/20/16 [History] buPROPion [Wellbutrin] 100 mg PO DAILY 06/20/16 [History] Non-Formulary Medication [NF Drug] 1 tab PO ASDIRECTED PRN 12/21/17 [History] Promethazine [Phenergan] 25 mg PO ASDIRECTED PRN 12/21/17 [History] Past Medical History Cardiovascular History: Reports: Hypertension Other Gastrointestinal History: status post gastric bypass, gallbladder removal, Neurological History: Reports: Migraines Psychiatric History: Reports: Anxiety, Depression Other Psychiatric History: does have the restless leg syndrome - Past Surgical History HEENT Surgical History: Reports: Tonsillectomy Other HEENT Surgeries/Procedures: wisdon teeth removed GI Surgical History: Reports: Cholecystectomy Female Surgical History: Reports: Tubal Ligation Musculoskeletal Surgical History: Reports: Arthroscopic Knee Social & Family History - Family History Cardiac: Reports: CAD GI: Reports: Colon Polyps - Tobacco Use Smoking Status *Q: Never Smoker - Caffeine Use Caffeine Use: Reports: None - Recreational Drug Use Recreational Drug Use: No ED ROS GENERAL - Review of Systems Review Of Systems: Comprehensive ROS is negative, except as noted in HPI. ED EXAM, GENERAL - Physical Exam Exam: See Below Exam Limited By: No Limitations General Appearance: Alert, Anxious, Moderate Distress Eye Exam: Bilateral Eye: EOMI, PERRL (right pupil slightly sluggish when compared to left), Other (no identified visual field loss) Ears: Normal External Exam, Normal Canal, Hearing Grossly Normal, Normal TMs Nose: Normal Inspection Throat/Mouth: Normal Lips, Normal Voice, No Airway Compromise Head: Atraumatic, Normocephalic Neck: Supple, Non-Tender, Full Range of Motion Respiratory/Chest: No Respiratory Distress, Lungs Clear, Normal Breath Sounds, No Accessory Muscle Use, Chest Non-Tender Cardiovascular: Normal Peripheral Pulses, Bradycardia Peripheral Pulses: 2+: Radial (L), Radial (R) GI/Abdominal: Normal Bowel Sounds, Soft, Non-Tender, No Distention (Female) Exam: Deferred Rectal (Female) Exam: Deferred Back Exam: No: CVA Tenderness (L), CVA Tenderness (R), Muscle Spasm, Paraspinal Tenderness, Vertebral Tenderness Extremities: Normal Range of Motion, Non-Tender, No Pedal Edema, Slow Capillary Refill (mildly sluggish) Neurological: Alert, Oriented, CN II-XII Intact, Normal Cognition, No Motor/ Sensory Deficits Psychiatric: Normal Affect, Normal Mood Skin Exam: Warm, Dry, Intact, Other (slightly pale when first arrived) EKG INTERPRETATION EKG Date: 06/20/19 Time: 21:13 Rhythm: Other (Bradycardia) Rate (Beats/Min): 45 [place]: Normal P-Wave: Present QRS: Normal ST-T: Normal QT: Normal Comparison: NA - No Prior EKG Course - Orders/Labs/Meds Orders: Active Orders 24 hr Category Date Time Status EKG Documentation Completion [RC] ASDIRECTED Care 06/20/19 22:23 Ordered Chest 1V Frontal [CR] Stat Exams 06/20/19 22:27 Ordered Head wo Cont [CT] Routine Exams 06/20/19 22:10 Taken PROLACTIN [REF] Stat Lab 06/20/19 22:23 Ordered TSH ULTRASENSITIVE [CHEM] Stat Lab 06/20/19 22:45 Ordered Sodium Chloride 0.9% [Normal Saline] 1,000 ml Med 06/20/19 22:23 Ordered IV .BOLUS Sodium Chloride 0.9% [Saline Flush] Med 06/20/19 22:21 Ordered 10 ml FLUSH ASDIRECTED PRN Saline Lock Insert [OM.PC] Stat Oth 06/20/19 22:21 Ordered EKG 12 Lead [EK] Stat Ther 06/20/19 22:21 Ordered Medication Orders Sodium Chloride (Normal Saline) 1,000 mls @ 999 mls/hr IV .BOLUS ONE Stop: 06/20/19 23:23 Last Admin: 06/20/19 22:34 Dose: 999 mls/hr Sodium Chloride (Saline Flush) 10 ml FLUSH ASDIRECTED PRN PRN Reason: Keep Vein Open Last Admin: 06/20/19 22:34 Dose: 10 ml Labs: Laboratory Tests 06/20/19 06/20/19 06/20/19 Range/Units 22:05 22:05 22:05 WBC 6.8 (4.0-10.2) K/uL RBC 4.33 (3.77-5.09) M/uL Hgb 10.2 L (11.7-15.5) g/dL Hct 33.0 L (34.0-46.0) % MCV 76.2 L D (84.0-98.0) fL MCH 23.6 L (28.2-33.3) pg MCHC 30.9 L (31.7-36.0) g/dL RDW 14.9 H (11.2-14.1) % Plt Count 317 D (150-350) K/uL Neut % (Auto) 40.5 L (45.0-80.0) % Lymph % (Auto) 46.1 (10.0-50.0) % [place] % (Auto) 10.5 (2.0-14.0) % Eos % (Auto) 2.2 (0.0-5.0) % Baso % (Auto) 0.7 (0.0-2.0) % Neut # (Auto) 2.77 (1.40-7.00) K/uL Lymph # (Auto) 3.15 (0.50-3.50) K/uL [place] # (Auto) 0.72 (0.00-1.00) K/uL Eos # (Auto) 0.15 (0.00-0.50) K/uL Baso # (Auto) 0.05 (0.00-0.20) K/uL PT (9.5-12.0) SEC INR APTT (24.5-32.8) SEC D-Dimer, Quantitative 118 (0-400) ng/mL Sodium 142 (136-145) mmol/L Potassium 3.9 (3.5-5.1) mmol/L Chloride 105 (98-107) mmol/L Carbon Dioxide 26.4 (21.0-32.0) mmol/L BUN 16 (7-18) mg/dL Creatinine 0.89 (0.51-1.17) mg/dL Est Cr Clr Drug Dosing TNP Estimated GFR (MDRD) > 60 mL/min Glucose 83 (74-106) mg/dL POC Glucose (65-110) mg/dl Calcium 8.6 (8.5-10.1) mg/dL Magnesium 2.1 (1.8-2.4) mg/dL Total Bilirubin 0.2 (0.2-1.0) mg/dL AST 15 (15-37) U/L ALT 17 (12-78) U/L Alkaline Phosphatase 89 (46-116) IU/L Creatine Kinase 45 (26-308) U/L Creatine Kinase Index 0.7 (0.0-2.5) % CK-MB (CK-2) 0.30 (0.00-3.60) ng/mL Troponin I 0.000 (0.000-0.056) ng/mL NT-Pro-B Natriuret Pep 163 H (0-125) pg/mL Total Protein 7.1 (6.4-8.2) g/dL Albumin 3.6 (3.4-5.0) g/dL Specimen Type Urine Color Urine Appearance Urine pH (5.0-9.0) Ur Specific [place] (1.005-1.030) Urine Protein (NEGATIVE) mg/dL Urine Glucose (UA) (NEGATIVE) mg/dL Urine Ketones (NEGATIVE) mg/dL Urine Occult Blood (NEGATIVE) Urine Nitrite (NEGATIVE) Urine Bilirubin (NEGATIVE) Urine Urobilinogen (0.2-1.0) E.U./dL Ur Leukocyte Esterase (NEGATIVE) Urine RBC /HPF Urine WBC /HPF Ur Epithelial Cells /LPF Other Crystals /HPF Urine Bacteria (NONE TO FEW) /HPF Urine Mucus (NEGATIVE) /LPF 06/20/19 06/20/19 06/20/19 Range/Units 22:05 22:25 22:31 WBC (4.0-10.2) K/uL RBC (3.77-5.09) M/uL Hgb (11.7-15.5) g/dL Hct (34.0-46.0) % MCV (84.0-98.0) fL MCH (28.2-33.3) pg MCHC (31.7-36.0) g/dL RDW (11.2-14.1) % Plt Count (150-350) K/uL Neut % (Auto) (45.0-80.0) % Lymph % (Auto) (10.0-50.0) % [place] % (Auto) (2.0-14.0) % Eos % (Auto) (0.0-5.0) % Baso % (Auto) (0.0-2.0) % Neut # (Auto) (1.40-7.00) K/uL Lymph # (Auto) (0.50-3.50) K/uL [place] # (Auto) (0.00-1.00) K/uL Eos # (Auto) (0.00-0.50) K/uL Baso # (Auto) (0.00-0.20) K/uL PT 9.7 (9.5-12.0) SEC INR 1.0 APTT 23.6 L (24.5-32.8) SEC D-Dimer, Quantitative (0-400) ng/mL Sodium (136-145) mmol/L Potassium (3.5-5.1) mmol/L Chloride (98-107) mmol/L Carbon Dioxide (21.0-32.0) mmol/L BUN (7-18) mg/dL Creatinine (0.51-1.17) mg/dL Est Cr Clr Drug Dosing Estimated GFR (MDRD) mL/min Glucose (74-106) mg/dL POC Glucose 229 H (65-110) mg/dl Calcium (8.5-10.1) mg/dL Magnesium (1.8-2.4) mg/dL Total Bilirubin (0.2-1.0) mg/dL AST (15-37) U/L ALT (12-78) U/L Alkaline Phosphatase (46-116) IU/L Creatine Kinase (26-308) U/L Creatine Kinase Index (0.0-2.5) % CK-MB (CK-2) (0.00-3.60) ng/mL Troponin I (0.000-0.056) ng/mL NT-Pro-B Natriuret Pep (0-125) pg/mL Total Protein (6.4-8.2) g/dL Albumin (3.4-5.0) g/dL Specimen Type Urinblad Urine Color Yellow Urine Appearance Clear Urine pH 6.0 (5.0-9.0) Ur Specific [place] 1.025 (1.005-1.030) Urine Protein Negative (NEGATIVE) mg/dL Urine Glucose (UA) 100 H (NEGATIVE) mg/dL Urine Ketones Negative (NEGATIVE) mg/dL Urine Occult Blood Negative (NEGATIVE) Urine Nitrite Negative (NEGATIVE) Urine Bilirubin Negative (NEGATIVE) Urine Urobilinogen 0.2 (0.2-1.0) E.U./dL Ur Leukocyte Esterase Negative (NEGATIVE) Urine RBC 0-5 /HPF Urine WBC 0-5 /HPF Ur Epithelial Cells Few /LPF Other Crystals /HPF Urine Bacteria Rare (NONE TO FEW) /HPF Urine Mucus Few H (NEGATIVE) /LPF Meds: Medications Generic Name Dose Route Start Last Admin Trade Name Freq PRN Reason Stop Dose Admin Sodium Chloride 1,000 mls @ 999 mls/hr 06/20/19 22:23 06/20/19 22:34 Normal Saline IV 06/20/19 23:23 999 mls/hr .BOLUS ONE Administration Sodium Chloride 10 ml 06/20/19 22:21 06/20/19 22:34 Saline Flush FLUSH 10 ml ASDIRECTED PRN Administration Keep Vein Open Discontinued Medications Generic Name Dose Route Start Last Admin Trade Name Curly PRN Reason Stop Dose Admin Dextrose/Water Confirm 06/20/19 22:16 06/20/19 22:17 Dextrose 50% In Water Administered 06/20/19 22:17 50 ml Dose Administration 50 ml .ROUTE .STK-MED ONE Meclizine HCl 25 mg 06/20/19 22:51 Antivert PO 06/20/19 22:52 ONETIME ONE Ondansetron HCl 4 mg 06/20/19 22:23 06/20/19 22:37 Zofran IVPUSH 06/20/19 22:24 Not Given ONETIME ONE Promethazine HCl 50 mg 06/20/19 22:45 06/20/19 22:48 Phenergan IM 06/20/19 22:46 50 mg ONETIME ONE Administration - Radiology Interpretation CT Results Date: 06/20/19 CT Results Time: 22:31 (No obvious acute intracranial changes noted by Radiology ) - Re-Assessments/Exams Free Text/Narrative Re-Assessment/Exam: Stroke code called by nursing staff. Patient had CT of head performed. No focal weakness/neuro deficits identified in initial exam. Labs ordered. Noted to be bradycardic with pulse between 40-45. Patient reported to us that her usual pulse is in 70s. No hypotension however. Stroke Scale unremarkable. Once CT results available call placed to from [facility]. She did not feel that patient's symptoms were due to stroke/intracranial changes. Patient received Phenergan for nausea. BP then noted to be hypotensive and patient received NS fluid bolus. Labs overall unremarkable. Pt's blood sugar was in 70s initially and she received D50. Side effects of Buspirone reviewed. Bradycardia/Vertigo not listed, dizziness and [employer] depression was noted. Interaction check for the Buspar was run with the Escitalopram and Pramipexole and again no cross reactions noted that would be consistent with patient's presentation other than [employer] depression. Cannot rule out medication side effects as contributing to patient's complaints. Inner ear disturbance is also possible contributor. Recommended to patient given the bradycardia in addition to not being able to ambulate well that she consider admission to observation. She requested to be sent to [facility]. Arrangements for transfer made with as accepting MD. Will transfer by EMS as patient's bradycardia will require cardiac monitoring en route/hemodynamic monitoring. BP improved s/p fluid bolus. Hear rate improved to high 40s/low 50s. Departure - Departure Time of Disposition: 23:50 Disposition: DC/Tfer to Acute Hospital 02 Condition: Good Clinical Impression: Bradycardia, Dizziness, Nausea - Discharge Information *PRESCRIPTION DRUG MONITORING PROGRAM REVIEWED*: Not Applicable *COPY OF PRESCRIPTION DRUG MONITORING REPORT IN PATIENT [place]: Not Applicable Referrals: Patricia Gallegos PA [Primary Care Provider] - - My Orders Last 24 Hours: My Active Orders 06/20/19 22:10 Head wo Cont [CT] Routine 06/20/19 22:21 Sodium Chloride 0.9% [Saline Flush] 10 ml FLUSH ASDIRECTED PRN Saline Lock Insert [OM.PC] Stat EKG 12 Lead [EK] Stat 06/20/19 22:23 EKG Documentation Completion [RC] ASDIRECTED PROLACTIN [REF] Stat Sodium Chloride 0.9% [Normal Saline] 1,000 ml IV .BOLUS 06/20/19 22:27 Chest 1V Frontal [CR] Stat 06/20/19 22:45 TSH ULTRASENSITIVE [CHEM] Stat - Assessment/Plan Last 24 Hours: My Active Orders 06/20/19 22:10 Head wo Cont [CT] Routine 06/20/19 22:21 Sodium Chloride 0.9% [Saline Flush] 10 ml FLUSH ASDIRECTED PRN Saline Lock Insert [OM.PC] Stat EKG 12 Lead [EK] Stat 06/20/19 22:23 EKG Documentation Completion [RC] ASDIRECTED PROLACTIN [REF] Stat Sodium Chloride 0.9% [Normal Saline] 1,000 ml IV .BOLUS 06/20/19 22:27 Chest 1V Frontal [CR] Stat 06/20/19 22:45 TSH ULTRASENSITIVE [CHEM] Stat
[2019-06-21 01:26] VITALS: BP 150/75; PULSE 49
== END 2019-06-21 00:10 ==
LOC: LL.ED 21:47
DX: R42 Dizziness and giddiness (principal); R11.0 Nausea; R00.1 Bradycardia, unspecified; I10 Essential (primary) hypertension; F41.9 Anxiety disorder, unspecified; F32.9 Major depressive disorder, single episode, unspecified; Z88.0 Allergy status to penicillin; Z88.1 Allergy status to other antibiotic agents; Z79.899 Other long term (current) drug therapy
CPT/HCPCS: 36415; 70450; 71045; 80053; 81001; 82550; 82553; 82962; 83735; 83880; 84146; 84443; 84484; 85025; 85379; 85610; 85730; 93005; 96361; 96372; 96374; 99285-25; A9270-GY; J2550; J7030

== ENCOUNTER 2019-10-24 21:51 | Emergency (ER) | payer BC ==
[2019-10-24 22:07] VITALS: BP 117/80; PULSE 79
--- NOTE | 2019-10-24 22:12 | EDM.PDOC ---
ED HPI GENERAL MEDICAL PROBLEM - General Chief Complaint: Headache Stated Complaint: Headache Time Seen by Provider: 10/24/19 22:10 Source of Information: Reports: Patient, Old Records ([facility] chart/EMR) History Limitations: Reports: No Limitations - History of Present Illness INITIAL COMMENTS - FREE TEXT/NARRATIVE: Patient drove herself to the emergency room via private automobile for evaluation of a moderate throbbing 6/10 bilateral frontal and bilateral parietal headache typical of her previous migraine attacks, including nausea without emesis, photophobia, etc. She did take 50 mg of Benadryl and 2 Excedrin migraine tablets shortly after the migraine headache occurred at about 18:00 hours this evening. No improvement with these medications with last emergency room evaluation for similar type symptoms in this facility on 06/20/19. The patient also denies any recent fever, cough, wheezing, dyspnea, etc.. No recent history of abdominal pain, heartburn, diarrhea, melena, gross hematochezia, or any food intolerance, including fatty foods, etc.. Onset: Today, Gradual Onset Date: 10/24/19 Onset Time: 18:00 Duration: Constant Location: Reports: Head. Denies: Face, Neck, Chest, Abdomen, Back, Upper Extremity, Left, Upper Extremity, Right, Radiates to Quality: Reports: Same as Previous Episode, Throbbing Severity: Moderate Improves with: Reports: None Worsens with: Reports: None Context: Reports: Other (As above). Denies: Sick Contact, Trauma Associated Symptoms: Reports: Headaches, Nausea/Vomiting (No emesis). 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 Medication(s) (As above) Headache Pain Score (Numeric/FACES): 6 - Related Data Allergies Allergy/AdvReac Type Severity Reaction Status Date / Time ciprofloxacin Allergy Hives Verified 10/24/19 21:53 hydrocodone Allergy Hives Verified 10/24/19 21:53 metoclopramide [From Reglan] Allergy Other Verified 10/24/19 21:53 Penicillins Allergy Hives Verified 10/24/19 21:53 Home Meds: Home Meds Escitalopram [Lexapro] 20 mg PO DAILY 03/16/17 [History] Multivitamins [Tab-A-Sarah] 3 tab PO DAILY 06/20/16 [History] Pramipexole Di-HCl [Mirapex] 0.5 mg PO BEDTIME 06/20/16 [History] Promethazine [Phenergan] 25 mg PO ASDIRECTED PRN 12/21/17 [History] Aspirin/Acetaminophen/Caffeine [Excedrin Migraine Caplet] 2 each PO ASDIRECTED PRN 10/24/19 [History] Melatonin 3 mg PO BEDTIME 10/24/19 [History] diphenhydrAMINE HCL [Benadryl] 50 mg PO ASDIRECTED 10/24/19 [History] estradioL [Climara] 1 each TD WEEKLY 10/24/19 [History] Past Medical History Cardiovascular History: Reports: Arrhythmia, Hypertension, Other (See Below) Other Cardiovascular History: Sinus bradycardia. Hypertension secondary to obesity. Respiratory History: Reports: None Gastrointestinal History: Reports: Cholelithiasis, Colon Polyp, GERD, Other (See Below) Other Gastrointestinal History: Nonspecific enteritis with benign hepatic cysts by CT scan on 06/23/17. GERD post gastric bypass by upper GI in 2018 as below. Tubular adenoma at the splenic flexure and polypoid polyp removed at 30 cm in the sigmoid colon in 2017 as below. 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 Midshaft right fourth metacarpal fracture on 04/09/19. Neurological History: Reports: Headaches, Chronic, Migraines, Other (See Below) Other Neuro History: Restless leg syndrome Psychiatric History: Reports: Anxiety, Depression Endocrine/Metabolic History: Reports: Obesity/BMI 30+, Other (See Below) Other Endocrine/Metabolic History: Previous obesity with status post gastric bypass Hematologic History: Reports: Anemia Immunologic History: Reports: None Oncologic (Cancer) History: Reports: Cervix, Other (See Below) Other Oncologic History: Abnormal Pap smear at age 17 with probable subsequent cryotherapy. Dermatologic History: Reports: None - Past Surgical History Head Surgeries/Procedures: Reports: None HEENT Surgical History: Reports: Adenoidectomy, Oral Surgery, Tonsillectomy Other HEENT Surgeries/Procedures: [place] teeth extraction. Tonsillectomy and adenoidectomy in September 2009. Respiratory Surgical History: Reports: None GI Surgical History: Reports: Bariatric Procedure, Cholecystectomy, Colonoscopy, Polypectomy, Other (See Below) Other GI Surgeries/Procedures: Colonoscopy with polypectomy 2 on 06/20/16. Female Surgical History: Reports: Cervical Cryotherapy, Hysterectomy, Salpingo-Oophorectomy, Tubal Ligation, Other (See Below) Other Female Surgeries/Procedures: Probable cryotherapy at age 17 as above. Complete hysterectomy with bilateral salpingo-oophorectomy on 03/08/19. Bilateral tubal ligation in February 2005. Musculoskeletal Surgical History: Reports: Arthroscopic Knee, Arthroscopic Procedure, Other (See Below) Other Musculoskeletal Surgeries/Procedures:: Arthroscopic patellar debridement of the left knee on 05/30/04. Previous left knee arthroscopic surgery in 2003 with bilateral arthroscopic knee surgeries in 2004? - Past Imaging History Past Imaging History: Reports: CAT Scan (CT of the head on 06/20/19. CT of the abdomen and pelvis on 06/23/17.), Mammogram (Last on 02/10/19.), MRI (Left knee on 04/17/04. Right elbow on 01/19/18. Left lower leg on 11/03/17.), Ultrasound (Pelvic ultrasound on 02/10/19, 05/30/16, 02/02/07, and 11/15/05. Thyroid ultrasound on 09/09/07.), Upper GI X-Ray/Series (Upper GI with small bowel series on 07/10/17) Social & Family History - Family History Family Medical History: Noncontributory Cardiac: Reports: Afib, CAD, Other (See Below) Other Cardiac Family History: Father with atrial fibrillation. GI: Reports: Colon Polyps Musculoskeletal: Reports: Fibromyalgia Endocrine/Metabolic: Reports: Diabetes, type II, Other (See Below) Other Endocrine/Metabolic Family History: Father with AODM. Oncologic: Reports: Breast, Renal, Other (See Below) Other Oncologic Family History: Father with renal cancer. Mother with breast cancer at age 56. - Tobacco Use Smoking Status *Q: Former Smoker Tobacco Use Within Last Twelve Months: No Years of Tobacco use: 9 Packs/Tins Daily: 1 Packs/Tins Daily Comment: Inconsistent history per medical records with previous history of 9 years of cigarette use, however patient now states she only smoked between ages 15 and 20. Used Tobacco, but Quit: Yes Smoking Cessation Information Provided To Patient: No Second Hand Smoke Exposure: No Second Hand Smoke Education Provided: No - Caffeine Use Caffeine Use: Reports: None ED ROS GENERAL - Review of Systems Review Of Systems: Comprehensive ROS is negative, except as noted in HPI. - Physical Exam Exam: See Below Exam Limited By: No Limitations General Appearance: Alert, WD/WN, No Apparent Distress Eye Exam: Bilateral Eye: EOMI, Normal Fundi, Normal Inspection (No nystagmus, mild photosensitivity), PERRL Ears: Normal External Exam, Normal Canal, Hearing Grossly Normal, Normal TMs Nose: Normal Inspection, Normal Mucosa, No Blood Throat/Mouth: Normal Inspection, Normal Lips, Normal Teeth, Normal Gums, Normal Oropharynx, Normal Voice, No Airway Compromise. No: Dysphagia, Perioral Cyanosis Head Exam: Atraumatic, Normocephalic. No: Facial Tenderness, Sinus Tenderness Neck: Normal Inspection, Supple, Non-Tender, Full Range of Motion. No: Lymphadenopathy (L), Lymphadenopathy (R), Thyromegaly Respiratory/Chest: No Respiratory Distress, Lungs Clear, Normal Breath Sounds, No Accessory Muscle Use, Chest Non-Tender. No: Pleural Rub, Retractions Cardiovascular: Normal Peripheral Pulses, Regular Rate, Rhythm, No Edema, No Gallop, No JVD, No Murmur, No Rub. No: Gallop/S3, Gallop/S4, Friction Rub GI/Abdominal: Normal Bowel Sounds, Soft, Non-Tender, No Organomegaly, No Distention, No Abnormal Bruit, No Mass. No: Guarding (Female) Exam: Deferred Rectal (Female) Exam: Deferred Neuro Exam (Abbreviated): Alert, Oriented, CN II-XII Intact, Normal Cognition, Normal Gait, No Motor/Sensory Deficits Back Exam: Normal Inspection, Full Range of Motion. No: CVA Tenderness (L), CVA Tenderness (R), Muscle Spasm Extremities: Normal Inspection, Normal Range of Motion, Non-Tender, No Pedal Edema, Normal Capillary Refill. No: Mat's Sign Psychiatric: Normal Affect, Normal Mood Skin Exam: Warm, Dry, Intact, Normal Color, No Rash. No: Diaphoretic, Wound/Incision Course - Vital Signs Last Recorded V/S: Last Vital Signs Temp 36.9 C 10/24/19 22:06 Pulse 79 10/24/19 22:06 Resp 12 10/24/19 22:06 BP 117/80 10/24/19 22:06 Pulse Ox 98 10/24/19 22:06 Vital Signs - 24 hr 10/24/19 22:06 Temperature [ 36.9 C Temporal] Pulse, 79 Peripheral [ Right Pulse Oximetry] Respiratory 12 Rate Blood Pressure 117/80 [Right Upper Arm] O2 Sat by Pulse 98 Oximetry - Orders/Labs/Meds Orders: Active Orders 24 hr Category Date Time Status Peripheral IV Care [RC] . DIRECTED Care 10/24/19 22:14 Active Sodium Chloride 0.9% [Saline Flush] Med 10/24/19 22:14 Active 10 ml FLUSH ASDIRECTED PRN Obtain Past Medical Record [OM.PC] Routine Oth 10/24/19 22:13 Active Peripheral IV Insertion Adult [OM.PC] Routine Oth 10/24/19 22:14 Ordered Medication Orders Sodium Chloride (Saline Flush) 10 ml FLUSH ASDIRECTED PRN PRN Reason: Keep Vein Open Last Admin: 10/24/19 22:39 Dose: 10 ml Documented by: Labs: None Meds: Medications Generic Name Dose Route Start Last Admin Trade Name Freq PRN Reason Stop Dose Admin Sodium Chloride 10 ml 10/24/19 22:14 10/24/19 22:39 Saline Flush FLUSH 10 ml ASDIRECTED PRN Administration Keep Vein Open Discontinued Medications Generic Name Dose Route Start Last Admin Trade Name Freq PRN Reason Stop Dose Admin Diazepam 5 mg 10/24/19 22:14 10/24/19 22:43 Valium IVPUSH 10/24/19 22:15 5 mg ONETIME ONE Administration Ketorolac Tromethamine 30 mg 10/24/19 22:14 10/24/19 22:38 Toradol IVPUSH 10/24/19 22:15 30 mg ONETIME ONE Administration Metoclopramide HCl 10 mg 10/24/19 22:13 Reglan IVPUSH 10/24/19 22:14 ONETIME ONE Ondansetron HCl 4 mg 10/24/19 22:24 10/24/19 22:38 Sherrill RAMIREZ 10/24/19 22:25 4 mg ONETIME ONE Administration - Radiology Interpretation Free Text/Narrative:: None Departure - Departure Time of Disposition: 23:10 Disposition: Home, Self-Care 01 Condition: Good Clinical Impression: Migraine, Mixed anxiety depressive disorder Hypertension Qualifiers: Hypertension type: essential hypertension Qualified Code(s): I10 - Essential (primary) hypertension - Discharge Information *PRESCRIPTION DRUG MONITORING PROGRAM REVIEWED*: Not Applicable *COPY OF PRESCRIPTION DRUG MONITORING REPORT IN PATIENT [place]: Not Applicable Instructions: Recurrent Migraine Headache, [id number] Referrals: Patricia Gallegos PA [Primary Care Provider] - Forms: ED Department Discharge Additional Instructions: 1. Follow up with your regular provider in 10-14 days as needed, if symptoms persist. Bring these discharge instructions with you to that visit.. 2. Tylenol 650 mg by mouth every 4 hours and/or OTC ibuprofen 2-3 tabs by mouth every 6 hours with food as directed./needed. You may stagger these medications for 48-72 hours only, which essentially means that you are receiving a pain medication about every 2 hours. Next dose of ibuprofen and/or Excedrin Migraine in 6 hours as needed secondary to medications given in the emergency room. 3. Ice packs to head and neck, dark and quiet room, etc. as directed until headache resolves. 4. Discuss possible additional preventative medications for your headaches with your regular provider. Consider OTC magnesium oxide 400 mg every day as headache prevention with diarrhea precautions with this medicatiion as directed. Never initiate medications on your own, however, prior to discussing this with your regular provider. 5. Sedation precautions with no driving, etc. for 18 hours because of emergency room medications. 6. Discuss with your regular provider discontinuation of her hormone replacement therapy secondary to your recurrent migraine headaches. 7. Immediately after this visit verify that your cellular telephone's voicemail has been activated and is empty. Also verify that your home telephone's answering machine is operating properly and has space to receive messages. Note that it is sometimes necessary for us to be able to contact you at a later date to discuss your medical care. 8. Please remember that we are ALWAYS here for you and want to answer any questions you may have. Feel free to call the hospital any time and we call you back ANA. Sepsis Event Note (ED) - Evaluation Sepsis Screening Result: No Definite Risk - Focused Exam Vital Signs: Vital Signs Temp Pulse Resp BP Pulse Ox 10/24/19 22:06 36.9 C 79 12 117/80 98 - Problem List & Annotations (1) Migraine SNOMED Code(s): 35558581 Code(s): G43.909 - MIGRAINE, UNSP, NOT INTRACTABLE, WITHOUT STATUS MIGRAINOSUS Status: Acute Priority: High Current Visit: Yes Onset Date: 10/24/19 Annotation/Comment:: Overall good results with treatment as above. Patient had a previous intolerance to Reglan i.e., shaky legs, and refused this medication, although she did respond to IV Zofran as above. A friend did drive her home with sedation precautions given. She was counseled on the risks of hormone replacement therapy with her recurrent migraine headaches and does agree to discuss this further with her regular provider. The patient did not need a work excuse by her history. (2) Hypertension SNOMED Code(s): 87113606 Code(s): I10 - ESSENTIAL (PRIMARY) HYPERTENSION Status: Chronic Priority: Medium Current Visit: Yes Annotation/Comment:: No current medical therapy. Apparently resolved after gastric bypass and weight loss. Qualifiers: Hypertension type: essential hypertension Qualified Code(s): I10 - Essential (primary) hypertension (3) Mixed anxiety depressive disorder SNOMED Code(s): 928240720 Code(s): F41.8 - OTHER SPECIFIED ANXIETY DISORDERS Status: Chronic Priority: Medium Current Visit: Yes Annotation/Comment:: Otherwise stable by history. - Problem List Review Problem List Initiated/Reviewed/Updated: Yes - My Orders Last 24 Hours: My Active Orders 10/24/19 22:13 Obtain Past Medical Record [OM.PC] Routine 10/24/19 22:14 Peripheral IV Care [RC] . DIRECTED Sodium Chloride 0.9% [Saline Flush] 10 ml FLUSH ASDIRECTED PRN Peripheral IV Insertion Adult [OM.PC] Routine - Assessment/Plan Last 24 Hours: My Active Orders 10/24/19 22:13 Obtain Past Medical Record [OM.PC] Routine 10/24/19 22:14 Peripheral IV Care [RC] . DIRECTED Sodium Chloride 0.9% [Saline Flush] 10 ml FLUSH ASDIRECTED PRN Peripheral IV Insertion Adult [OM.PC] Routine Assessment:: As above Plan: As above. Extensive precautions were given to the patient, who is in agreement with the treatment plan. See Patient Instructions for further treatment and plan.
[2019-10-24] MEDS ORDERED: Metoclopramide 10 MG/2 ML SDV IVPUSH ONE (22:13)
[2019-10-24] MEDS ORDERED: Sodium Chloride 0.9% 10 ML Syringe FLUSH PRN (22:14)
[2019-10-24] MEDS ORDERED: Ketorolac 30 MG/ML SDV IVPUSH ONE (22:14)
[2019-10-24] MEDS ORDERED: Ondansetron 4 MG/2 ML SDV IVPUSH ONE (22:24)
== END 2019-10-24 23:10 | disposition home or self-care (01) ==
LOC: LL.ED 21:51
DX: G43.909 Migraine, unspecified, not intractable, without status migrainosus (principal); I10 Essential (primary) hypertension; F41.8 Other specified anxiety disorders; M19.90 Unspecified osteoarthritis, unspecified site; E66.9 Obesity, unspecified; Z68.27 Body mass index [BMI] 27.0-27.9, adult; Z87.891 Personal history of nicotine dependence; Z88.0 Allergy status to penicillin; Z88.1 Allergy status to other antibiotic agents; Z88.5 Allergy status to narcotic agent; Z79.82 Long term (current) use of aspirin; Z79.899 Other long term (current) drug therapy; Z88.8 Allergy status to other drugs, medicaments and biological substances
CPT/HCPCS: 96374; 96375; 99283-25; J1885; J2405; J3360

== ENCOUNTER 2019-12-23 17:11 | Emergency (ER) | payer BC ==
[2019-12-23] MEDS ORDERED: Ondansetron 4 MG/2 ML SDV IVPUSH ONE (17:16)
--- NOTE | 2019-12-23 17:16 | EDM.PDOC ---
ED HPI GENERAL MEDICAL PROBLEM - General Chief Complaint: General Stated Complaint: headache and emesis Time Seen by Provider: 12/23/19 17:14 Source of Information: Reports: Patient, Old Records ([facility] chart/EMR) History Limitations: Reports: No Limitations - History of Present Illness INITIAL COMMENTS - FREE TEXT/NARRATIVE: Patient was brought to the emergency room via private automobile by her friend for evaluation of a throbbing 8/10 left retro-ocular and left-sided headache with symptoms starting at about 1 PM this afternoon. The patient did take 1000 mg of Tylenol and 25 mg of Benadryl at 2 PM with no improvement of her symptoms. This headache is similar to her previous migraine headaches, including moderate light photosensitivity, with last emergency room treatment in this facility for similar type symptoms on 10/24/2019. She is having some nausea with no emesis to this point. No recent history of abdominal pain, heartburn, diarrhea, melena, gross hematochezia, or any food intolerance, including fatty foods, etc.. She denies any gross hematuria, colic, or other UTI symptoms. The patient also denies any recent fever, cough, wheezing, dyspnea, etc.. Onset: Today, Sudden Onset Date: 12/23/19 Onset Time: 13:00 Duration: Constant, Getting Worse Location: Reports: Head. Denies: Face, Neck, Chest, Abdomen, Back, Upper Extremity, Left, Upper Extremity, Right, Radiates to Quality: Reports: Same as Previous Episode, Throbbing Severity: Moderate Improves with: Reports: None Worsens with: Reports: None Context: Reports: Other (As above). Denies: Sick Contact, Trauma Associated Symptoms: Reports: Nausea/Vomiting (No emesis as above). 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: Acetaminophen, Other Medication(s) Left Occipital Headache Pain Score (Numeric/FACES): 8 - Related Data Allergies Allergy/AdvReac Type Severity Reaction Status Date / Time ciprofloxacin Allergy Hives Verified 12/23/19 17:13 metoclopramide [From Reglan] Allergy Other Verified 12/23/19 17:13 Penicillins Allergy Hives Verified 09/17/20 17:13 Home Meds: Home Meds Escitalopram [Lexapro] 20 mg PO DAILY 06/20/16 [History] Multivitamins [Tab-A-Sarah] 3 tab PO DAILY 06/20/16 [History] Pramipexole Di-HCl [Mirapex] 0.5 mg PO BEDTIME 06/20/16 [History] Promethazine [Phenergan] 25 mg PO ASDIRECTED PRN 12/21/17 [History] Aspirin/Acetaminophen/Caffeine [Excedrin Migraine Caplet] 2 each PO ASDIRECTED PRN 10/24/19 [History] diphenhydrAMINE HCL [Benadryl] 50 mg PO ASDIRECTED PRN 10/24/19 [History] estradioL [Climara] 1 each TD WEEKLY 10/24/19 [History] Acetaminophen [Acetaminophen Extra Strength] 2 tab PO Q6HR PRN 12/23/19 [History] Past Medical History HEENT History: Reports: Impaired Vision, Other (See Below). Denies: Allergic Rhinitis, Cataract, Glaucoma, Hard of Hearing, Macular Degeneration, Otitis Media, Retinal Detachment Other HEENT History: Patient wears glasses. Cardiovascular History: Reports: Arrhythmia, Hypertension, Other (See Below) Other Cardiovascular History: Sinus bradycardia. Hypertension secondary to obesity. Respiratory History: Reports: None Gastrointestinal History: Reports: Cholelithiasis, Colon Polyp, GERD, Other (See Below) Other Gastrointestinal History: Nonspecific enteritis with benign hepatic cysts by CT scan on 06/23/17. GERD post gastric bypass by upper GI in 2018 as below. Tubular adenoma at the splenic flexure and polypoid polyp removed at 30 cm in the sigmoid colon in 2017 as below. Genitourinary History: Reports: UTI, Recurrent REGISTERED DIETICIAN History: Reports: Dysfunctional Uterine Bleeding, Fibroids, Polycystic Ovaries, : 1 Para: 1 LMP (Approximate): Other (See Below) Other REGISTERED DIETICIAN History: Surgical menopause secondary to uterine fibroids and dysfunctional uterine bleeding Musculoskeletal History: Reports: Arthritis, Fracture, Osteoarthritis, Other (See Below) Other Musculoskeletal History: Left knee posterior cruciate ligamental tear by MRI in 2004 with surgery as below. Midshaft right fourth metacarpal fracture on 04/09/19. Neurological History: Reports: Headaches, Chronic, Migraines, Other (See Below) Other Neuro History: Restless leg syndrome Psychiatric History: Reports: Anxiety, Depression Other Psychiatric History: does have the restless leg syndrome Endocrine/Metabolic History: Reports: Obesity/BMI 30+, Other (See Below) Other Endocrine/Metabolic History: Previous obesity with status post gastric bypass Hematologic History: Reports: Anemia Immunologic History: Reports: None Oncologic (Cancer) History: Reports: Cervix, Other (See Below) Other Oncologic History: Abnormal Pap smear at age 17 with probable subsequent cryotherapy. Dermatologic History: Reports: None - Past Surgical History Head Surgeries/Procedures: Reports: None HEENT Surgical History: Reports: Adenoidectomy, Oral Surgery, Tonsillectomy, Other (See Below) Other HEENT Surgeries/Procedures: [place] teeth extraction. Tonsillectomy and adenoidectomy in September 2009. Respiratory Surgical History: Reports: None GI Surgical History: Reports: Bariatric Procedure, Cholecystectomy, Colonoscopy, Polypectomy, Other (See Below) Other GI Surgeries/Procedures: Colonoscopy with polypectomy 2 on 06/20/16. Female Surgical History: Reports: Cervical Cryotherapy, Hysterectomy, Salpingo-Oophorectomy, Tubal Ligation, Other (See Below) Other Female Surgeries/Procedures: Probable cryotherapy at age 17 as above. Complete hysterectomy with bilateral salpingo-oophorectomy on 03/08/19. Bilateral tubal ligation in February 2005. Musculoskeletal Surgical History: Reports: Arthroscopic Knee, Arthroscopic Procedure, Other (See Below) Other Musculoskeletal Surgeries/Procedures:: Arthroscopic patellar debridement of the left knee on 05/30/04. Previous left knee arthroscopic surgery in 2003 with bilateral arthroscopic knee surgeries in 2004? - Past Imaging History Past Imaging History: Reports: CAT Scan (CT of the head on 06/20/19. CT of the abdomen and pelvis on 06/23/17.), Mammogram (Last on 02/10/19.), MRI (Left knee on 04/17/04. Right elbow on 01/19/18. Left lower leg on 11/03/17.), Ultrasound (Pelvic ultrasound on 02/10/19, 05/30/16, 02/02/07, and 11/15/05. Thyroid ultrasound on 09/09/07.), Upper GI X-Ray/Series (Upper GI with small bowel series on 07/10/17) Social & Family History - Family History Family Medical History: Noncontributory Cardiac: Reports: Afib, CAD, Other (See Below) Other Cardiac Family History: Father with atrial fibrillation. GI: Reports: Colon Polyps Musculoskeletal: Reports: Fibromyalgia Endocrine/Metabolic: Reports: Diabetes, type II, Other (See Below) Other Endocrine/Metabolic Family History: Father with AODM. Oncologic: Reports: Breast, Renal, Other (See Below) Other Oncologic Family History: Father with renal cancer. Mother with breast cancer at age 56. - Tobacco Use Smoking Status *Q: Former Smoker Tobacco Use Within Last Twelve Months: No Years of Tobacco use: 9 Packs/Tins Daily: 1 Packs/Tins Daily Comment: Inconsistent history per medical records with previous history of 9 years of cigarette use, however patient now states she only smoked between ages 15 and 20. Used Tobacco, but Quit: Yes Smoking Cessation Information Provided To Patient: No Second Hand Smoke Exposure: No Second Hand Smoke Education Provided: No - Caffeine Use Caffeine Use: Reports: None ED ROS GENERAL - Review of Systems Review Of Systems: Comprehensive ROS is negative, except as noted in HPI. ED EXAM, GENERAL - Physical Exam Exam: See Below Exam Limited By: No Limitations General Appearance: Alert, WD/WN, No Apparent Distress Eye Exam: Bilateral Eye: EOMI, Normal Fundi, Normal Inspection (No nystagmus), PERRL Ears: Normal External Exam, Normal Canal, Hearing Grossly Normal, Normal TMs Nose: Normal Inspection, Normal Mucosa, No Blood Throat/Mouth: Normal Inspection, Normal Lips, Normal Teeth, Normal Gums, Normal Oropharynx, Normal Voice, No Airway Compromise. No: Dysphagia, Perioral Cyanosis Head: Atraumatic, Normocephalic. No: Facial Swelling, Facial Tenderness, Sinus Tenderness Neck: Normal Inspection, Supple, Non-Tender, Full Range of Motion. No: Lymphadenopathy (L), Lymphadenopathy (R), Thyromegaly Respiratory/Chest: No Respiratory Distress, Lungs Clear, Normal Breath Sounds, No Accessory Muscle Use, Chest Non-Tender. No: Pleural Rub, Retractions Cardiovascular: Normal Peripheral Pulses, Regular Rate, Rhythm, No Edema, No Gallop, No JVD, No Murmur, No Rub. No: Gallop/S3, Gallop/S4, Friction Rub Peripheral Pulses: 2+: Radial (L), Radial (R) GI/Abdominal: Normal Bowel Sounds, Soft, Non-Tender, No Organomegaly, No Distention, No Abnormal Bruit, No Mass, Other (obese). No: Guarding (Female) Exam: Deferred Rectal (Female) Exam: Deferred Back Exam: Normal Inspection, Full Range of Motion. No: CVA Tenderness (L), CVA Tenderness (R), Muscle Spasm Extremities: Normal Inspection, Normal Range of Motion, Non-Tender, No Pedal Edema, Normal Capillary Refill. No: Mat's Sign Neurological: Alert, Oriented, CN II-XII Intact, Normal Cognition, Normal Gait, No Motor/Sensory Deficits Psychiatric: Normal Affect, Normal Mood Skin Exam: Warm, Dry, Intact, Normal Color, No Rash. No: Lymphangitis, Wound/Incision Lymphatic: No Adenopathy Course - Vital Signs Last Recorded V/S: Last Vital Signs Temp 36.9 C 12/23/19 17:46 Pulse 62 12/23/19 18:53 Resp 16 12/23/19 18:53 BP 119/64 12/23/19 18:53 Pulse Ox 98 12/23/19 18:53 Vital Signs - 24 hr 12/23/19 12/23/19 12/23/19 17:32 17:46 18:53 Temperature [ 36.9 C Temporal] Pulse, 61 74 62 Peripheral [ Right Pulse Oximetry] Respiratory 16 16 16 Rate Blood Pressure 116/76 136/64 119/64 [Right Upper Arm] O2 Sat by Pulse 98 100 98 Oximetry - Orders/Labs/Meds Orders: Active Orders 24 hr Category Date Time Status Obtain Past Medical Record [OM.PC] Routine Oth 12/23/19 17:16 Active Peripheral IV Insertion Adult [OM.PC] Routine Oth 12/23/19 17:16 Ordered Labs: None Meds: Medications Discontinued Medications Generic Name Dose Route Start Last Admin Trade Name Leiq PRN Reason Stop Dose Admin Diazepam 5 mg 12/23/19 17:16 12/23/19 17:27 Valium IVPUSH 12/23/19 17:17 5 mg ONETIME ONE Administration Diphenhydramine HCl 50 mg 12/23/19 18:32 12/23/19 18:43 Benadryl IVPUSH 12/23/19 18:33 50 mg ONETIME ONE Administration Famotidine 40 mg 12/23/19 17:17 12/23/19 17:27 Pepcid IVPUSH 12/23/19 17:18 40 mg ONETIME ONE Administration Magnesium Sulfate 4 gm/ Premix 100 mls @ 200 mls/hr 12/23/19 17:45 12/23/19 17:52 IV 12/23/19 18:14 200 mls/hr ONETIME ONE Administration Ketorolac Tromethamine 30 mg 12/23/19 17:17 12/23/19 17:22 Toradol IVPUSH 12/23/19 17:18 30 mg ONETIME ONE Administration Ondansetron HCl 4 mg 12/23/19 17:16 12/23/19 17:25 Zofran IVPUSH 12/23/19 17:17 4 mg ONETIME ONE Administration Sodium Chloride 10 ml 12/23/19 17:16 12/23/19 18:44 Saline Flush FLUSH 10 ml ASDIRECTED PRN Administration Keep Vein Open - Radiology Interpretation Free Text/Narrative:: None Departure - Departure Time of Disposition: 19:40 Disposition: Home, Self-Care 01 Condition: Good Clinical Impression: Mixed anxiety depressive disorder, Migraine Hypertension Qualifiers: Hypertension type: essential hypertension Qualified Code(s): I10 - Essential (primary) hypertension - Discharge Information *PRESCRIPTION DRUG MONITORING PROGRAM REVIEWED*: Not Applicable *COPY OF PRESCRIPTION DRUG MONITORING REPORT IN PATIENT [place]: Not Applicable Instructions: Migraine Headache, [id number] Referrals: Patricia Gallegos PA [Primary Care Provider] - Forms: ED Department Discharge Additional Instructions: 1. Follow-up with your regular provider in 5-7 days for reevaluation. 2. Discuss at the above follow-up visit with your regular provider possible discontinuation of your hormone replacement therapy secondary to the relative contraindication of estrogen therapy with recurrent migraine headaches as discussed today. You will also likely need further adjustment of your current medications to prevent/reduce your frequent migraine headaches at this time. 3. Tylenol 650 mg by mouth every 4 hours and/or OTC ibuprofen 2-3 tabs by mouth every 6 hours with food as directed./needed. You may stagger these medications for 48-72 hours only, which essentially means that you are receiving a pain medication about every 2 hours. Next dose of ibuprofen in 6 hours as needed secondary to medications given in the emergency room. 4. Ice packs to head and neck, dark and quiet room, etc. as directed until headache resolves. 5. Sedation precautions with no driving, etc. for 18 hours because of emergency room medications. 6. Immediately after this visit verify that your cellular telephone's voicemail has been activated and is empty. Also verify that your home telephone's answering machine is operating properly and has space to receive messages. Note that it is sometimes necessary for us to be able to contact you at a later date to discuss your medical care. 7. Please remember that we are ALWAYS here for you and want to answer any questions you may have. Feel free to call the hospital any time and we call you back ANA. 8. Discuss possible additional preventative medications for your headaches with your regular provider. Consider OTC magnesium oxide 400 mg every day as headache prevention with diarrhea precautions with this medicatiion as directed. Never initiate medications on your own, however, prior to discussing this with your regular provider. Sepsis Event Note (ED) - Focused Exam Vital Signs: Vital Signs Temp Pulse Resp BP Pulse Ox 12/23/19 18:53 62 16 119/64 98 12/23/19 17:46 36.9 C 74 16 136/64 100 12/23/19 17:32 61 16 116/76 98 - Problem List & Annotations (1) Migraine SNOMED Code(s): 41702749 Code(s): G43.909 - MIGRAINE, UNSP, NOT INTRACTABLE, WITHOUT STATUS MIGRAINOSU S Status: Acute Priority: High Onset Date: 10/24/19 Annotation/Comment:: Note mixed migraine tension headache components. Overall good results with treatment as above. Patient had a previous intolerance to Reglan i.e., shaky legs, and refused this medication on 10/24/2019, although she did respond to IV Zofran as above. A friend did drive her home with sedation precautions given. She was once again counseled on the risks of hormone replacement therapy with her recurrent migraine headaches, however she has yet to discuss this further with her regular provider. Secondary to recurrent ER evaluations for migraine headache, including last treatment in this facility on 10/24/2019, she should have close follow-up with her regular provider. Initiation of prophylactic medication treatment is strongly advisable. The patient did not need a work excuse by her history. (2) Hypertension SNOMED Code(s): 75708825 Code(s): I10 - ESSENTIAL (PRIMARY) HYPERTENSION Status: Chronic Priority: Medium Annotation/Comment:: No current medical therapy. Apparently resolved after gastric bypass and weight loss. Continue to observe closely by her regu lar provider. Qualifiers: Hypertension type: essential hypertension Qualified Code(s): I10 - Essential (primary) hypertension (3) Mixed anxiety depressive disorder SNOMED Code(s): 298237136 Code(s): F41.8 - OTHER SPECIFIED ANXIETY DISORDERS Status: Chronic Priority: Medium Annotation/Comment:: Otherwise stable by history. - Problem List Review Problem List Initiated/Reviewed/Updated: Yes - My Orders Last 24 Hours: My Active Orders 12/23/19 17:16 Obtain Past Medical Record [OM.PC] Routine Peripheral IV Insertion Adult [OM.PC] Routine - Assessment/Plan Last 24 Hours: My Active Orders 12/23/19 17:16 Obtain Past Medical Record [OM.PC] Routine Peripheral IV Insertion Adult [OM.PC] Routine Assessment:: As above Plan: As above. Extensive precautions were given to the patient, who is in agreement with the treatment plan. See Patient Instructions for further treatment and plan.
[2019-12-23] MEDS ORDERED: Ketorolac 30 MG/ML SDV IVPUSH ONE (17:17)
[2019-12-23] MEDS ORDERED: Famotidine 20 MG/2 ML SDV IVPUSH ONE (17:17)
[2019-12-23] MEDS: Sodium Chloride 0.9% 10 ML Syringe FLUSH PRN ×4 (17:27→18:44)
[2019-12-23] MEDS ORDERED: Magnesium Sulfate/Water 4 GM in Premix Bag 1 BAG IV ONE (17:45)
[2019-12-23] MEDS ORDERED: diphenhydrAMINE 50 MG/ML SDV IVPUSH ONE (18:32)
[2019-12-23 18:54] VITALS: BP 119/64; PULSE 62
== END 2019-12-23 19:40 | disposition home or self-care (01) ==
LOC: LL.ED 17:11
DX: G43.909 Migraine, unspecified, not intractable, without status migrainosus (principal); I10 Essential (primary) hypertension; F41.8 Other specified anxiety disorders; E66.9 Obesity, unspecified; Z90.89 Acquired absence of other organs; Z88.0 Allergy status to penicillin; Z88.1 Allergy status to other antibiotic agents; Z79.899 Other long term (current) drug therapy; Z87.891 Personal history of nicotine dependence; Z68.30 Body mass index [BMI] 30.0-30.9, adult
CPT/HCPCS: 96365; 96375; 99283-25; J1200; J1885; J2405; J3360; J3475; J3490

== ENCOUNTER 2020-01-26 17:08 | Emergency (ER) | payer BC ==
[2020-01-26] MEDS ORDERED: Sodium Chloride 0.9% 1,000 ML IV ONE (17:11)
[2020-01-26] MEDS ORDERED: Ondansetron 4 MG/2 ML SDV IVPUSH ONE (17:11)
[2020-01-26] MEDS ORDERED: diphenhydrAMINE 50 MG/ML SDV IVPUSH ONE (17:12)
[2020-01-26] MEDS ORDERED: Ketorolac 30 MG/ML SDV IVPUSH ONE (17:12)
--- NOTE | 2020-01-26 17:15 | EDM.PDOC ---
ED HPI GENERAL MEDICAL PROBLEM - General Chief Complaint: Headache Stated Complaint: migraine Time Seen by Provider: 01/26/20 17:08 Source of Information: Reports: Patient History Limitations: Reports: No Limitations - History of Present Illness INITIAL COMMENTS - FREE TEXT/NARRATIVE: Pt with migraine CANNON Has hx/o CANNON's in past Did take her OTC meds at home Some nausea Some photophobia Onset: Today, Gradual Duration: Hour(s):, Getting Worse Location: Reports: Head Associated Symptoms: Reports: Nausea/Vomiting - Related Data Allergies Allergy/AdvReac Type Severity Reaction Status Date / Time ciprofloxacin Allergy Hives Verified 01/26/20 17:09 metoclopramide [From Reglan] Allergy Other Verified 01/26/20 17:09 Penicillins Allergy Hives Verified 01/26/20 17:09 Home Meds: Home Meds Escitalopram [Lexapro] 20 mg PO DAILY 06/20/16 [History] Multivitamins [Tab-A-Sarah] 3 tab PO DAILY 06/20/16 [History] Pramipexole Di-HCl [Mirapex] 0.5 mg PO BEDTIME 06/20/16 [History] Promethazine [Phenergan] 25 mg PO ASDIRECTED PRN 12/21/17 [History] Aspirin/Acetaminophen/Caffeine [Excedrin Migraine Caplet] 2 each PO ASDIRECTED PRN 10/24/19 [History] diphenhydrAMINE HCL [Benadryl] 50 mg PO ASDIRECTED PRN 10/24/19 [History] estradioL [Climara] 1 each TD WEEKLY 10/24/19 [History] Acetaminophen [Acetaminophen Extra Strength] 2 tab PO Q6HR PRN 12/23/19 [History] Past Medical History HEENT History: Reports: Impaired Vision, Other (See Below). Denies: Allergic Rhinitis, Cataract, Glaucoma, Hard of Hearing, Macular Degeneration, Otitis Media, Retinal Detachment Other HEENT History: Patient wears glasses. Cardiovascular History: Reports: Arrhythmia, Hypertension, Other (See Below) Other Cardiovascular History: Sinus bradycardia. Hypertension secondary to obesity. Respiratory History: Reports: None Gastrointestinal History: Reports: Cholelithiasis, Colon Polyp, GERD, Other (See Below) Other Gastrointestinal History: Nonspecific enteritis with benign hepatic cysts by CT scan on 06/23/17. GERD post gastric bypass by upper GI in 2018 as below. Tubular adenoma at the splenic flexure and polypoid polyp removed at 30 cm in the sigmoid colon in 2017 as below. 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 Midshaft right fourth metacarpal fracture on 04/09/19. Neurological History: Reports: Headaches, Chronic, Migraines, Other (See Below) Other Neuro History: Restless leg syndrome Psychiatric History: Reports: Anxiety, Depression Other Psychiatric History: does have the restless leg syndrome Endocrine/Metabolic History: Reports: Obesity/BMI 30+, Other (See Below) Other Endocrine/Metabolic History: Previous obesity with status post gastric bypass Hematologic History: Reports: Anemia Immunologic History: Reports: None Oncologic (Cancer) History: Reports: Cervix, Other (See Below) Other Oncologic History: Abnormal Pap smear at age 17 with probable subsequent cryotherapy. Dermatologic History: Reports: None - Past Surgical History Head Surgeries/Procedures: Reports: None HEENT Surgical History: Reports: Adenoidectomy, Oral Surgery, Tonsillectomy, Other (See Below) Other HEENT Surgeries/Procedures: [place] teeth extraction. Tonsillectomy and adenoidectomy in September 2009. Respiratory Surgical History: Reports: None GI Surgical History: Reports: Bariatric Procedure, Cholecystectomy, Colonoscopy, Polypectomy, Other (See Below) Other GI Surgeries/Procedures: Colonoscopy with polypectomy 2 on 06/20/16. Female Surgical History: Reports: Cervical Cryotherapy, Hysterectomy, Salpingo-Oophorectomy, Tubal Ligation, Other (See Below) Other Female Surgeries/Procedures: Probable cryotherapy at age 17 as above. Complete hysterectomy with bilateral salpingo-oophorectomy on 03/08/19. Bilateral tubal ligation in February 2005. Musculoskeletal Surgical History: Reports: Arthroscopic Knee, Arthroscopic Procedure, Other (See Below) Other Musculoskeletal Surgeries/Procedures:: Arthroscopic patellar debridement of the left knee on 05/30/04. Previous left knee arthroscopic surgery in 2003 with bilateral arthroscopic knee surgeries in 2004? - Past Imaging History Past Imaging History: Reports: CAT Scan (CT of the head on 06/20/19. CT of the abdomen and pelvis on 06/23/17.), Mammogram (Last on 02/10/19.), MRI (Left knee on 04/17/04. Right elbow on 01/19/18. Left lower leg on 11/03/17.), Ultrasound (Pelvic ultrasound on 02/10/19, 05/30/16, 02/02/07, and 11/15/05. Thyroid ultrasound on 09/09/07.), Upper GI X-Ray/Series (Upper GI with small bowel series on 07/10/17) Social & Family History - Family History Family Medical History: Noncontributory Cardiac: Reports: Afib, CAD, Other (See Below) Other Cardiac Family History: Father with atrial fibrillation. GI: Reports: Colon Polyps Musculoskeletal: Reports: Fibromyalgia Endocrine/Metabolic: Reports: Diabetes, type II, Other (See Below) Other Endocrine/Metabolic Family History: Father with AODM. Oncologic: Reports: Breast, Renal, Other (See Below) Other Oncologic Family History: Father with renal cancer. Mother with breast cancer at age 56. - Caffeine Use Caffeine Use: Reports: None ED ROS GENERAL - Review of Systems Review Of Systems: See Below HEENT: Reports: No Symptoms Respiratory: Reports: No Symptoms Cardiovascular: Reports: No Symptoms GI/Abdominal: Reports: Nausea Neurological: Reports: Headache Psychiatric: Reports: No Symptoms - Physical Exam Exam: See Below Exam Limited By: No Limitations General Appearance: Alert, WD/WN, Moderate Distress Eye Exam: Bilateral Eye: PERRL Ears: Normal TMs Throat/Mouth: Normal Oropharynx Head Exam: Atraumatic Neck: Supple Respiratory/Chest: Lungs Clear Cardiovascular: Regular Rate, Rhythm, Irregularly Irregular GI/Abdominal: Soft, Non-Tender Neuro Exam (Abbreviated): Alert, Oriented, No Motor/Sensory Deficits Extremities: Normal Inspection Psychiatric: Normal Affect, Normal Mood Skin Exam: Warm, Dry Course - Orders/Labs/Meds Orders: Active Orders 24 hr Category Date Time Status Ketorolac [Toradol] Med 01/26/20 17:12 Once 30 mg IVPUSH ONETIME ONE Ondansetron [Zofran] Med 01/26/20 17:11 Once 8 mg IVPUSH ONETIME ONE Sodium Chloride 0.9% [Normal Saline] 1,000 ml Med 01/26/20 17:11 Ordered IV .BOLUS diphenhydrAMINE [Benadryl] Med 01/26/20 17:12 Once 50 mg IVPUSH ONETIME ONE - Re-Assessments/Exams Free Text/Narrative Re-Assessment/Exam: 01/26/20 17:14 Pt given IVF, IV Zofran 8 mg, IV Benadryl 50 mg, and IV Toradol 30 mg in ER Departure - Departure Time of Disposition: 18:15 Disposition: Home, Self-Care 01 Clinical Impression: Migraine - Discharge Information *PRESCRIPTION DRUG MONITORING PROGRAM REVIEWED*: Not Applicable *COPY OF PRESCRIPTION DRUG MONITORING REPORT IN PATIENT [place]: Not Applicable Instructions: Recurrent Migraine Headache, [id number] Referrals: Patricia Gallegos PA [Primary Care Provider] - Additional Instructions: Follow up in clinic - My Orders Last 24 Hours: My Active Orders 01/26/20 17:11 Ondansetron [Zofran] 8 mg IVPUSH ONETIME ONE Sodium Chloride 0.9% [Normal Saline] 1,000 ml IV .BOLUS 01/26/20 17:12 Ketorolac [Toradol] 30 mg IVPUSH ONETIME ONE diphenhydrAMINE [Benadryl] 50 mg IVPUSH ONETIME ONE - Assessment/Plan Last 24 Hours: My Active Orders 01/26/20 17:11 Ondansetron [Zofran] 8 mg IVPUSH ONETIME ONE Sodium Chloride 0.9% [Normal Saline] 1,000 ml IV .BOLUS 01/26/20 17:12 Ketorolac [Toradol] 30 mg IVPUSH ONETIME ONE diphenhydrAMINE [Benadryl] 50 mg IVPUSH ONETIME ONE
[2020-01-26] MEDS: Sodium Chloride 0.9% 10 ML Syringe FLUSH PRN ×3 (17:51→18:48)
[2020-01-26] MEDS ORDERED: Promethazine 25 MG/ML SDV IM ONE (18:12)
[2020-01-26 18:32] VITALS: BP 132/78; PULSE 62
== END 2020-01-26 19:35 | disposition home or self-care (01) ==
LOC: LL.ED 17:08
DX: G43.909 Migraine, unspecified, not intractable, without status migrainosus (principal); E66.9 Obesity, unspecified; I10 Essential (primary) hypertension; M19.90 Unspecified osteoarthritis, unspecified site; F41.9 Anxiety disorder, unspecified; F32.9 Major depressive disorder, single episode, unspecified; G25.81 Restless legs syndrome; Z88.1 Allergy status to other antibiotic agents; Z88.8 Allergy status to other drugs, medicaments and biological substances; Z88.0 Allergy status to penicillin; Z79.899 Other long term (current) drug therapy; Z79.82 Long term (current) use of aspirin
CPT/HCPCS: 96372; 96374; 96375; 99283; J1200; J1885; J2405; J2550; J3360; J7030

== ENCOUNTER 2020-05-29 19:08 | Emergency (ER) | payer BC ==
--- NOTE | 2020-05-29 19:12 | EDM.PDOC ---
ED HPI GENERAL MEDICAL PROBLEM - General Chief Complaint: Headache Stated Complaint: migraine Time Seen by Provider: 05/29/20 19:12 Source of Information: Reports: Patient, Old Records ([facility] chart/EMR) History Limitations: Reports: No Limitations - History of Present Illness INITIAL COMMENTS - FREE TEXT/NARRATIVE: The patient was brought to the emergency room via private automobile by her friend for evaluation of a 3-day history of progressive 9/10 right temporal migraine headache similar to her previous attacks. Patient did take 1000 mg of Tylenol at 10 AM with patient seeing her regular provider, Otoniel Martinez PA-C, at the [facility], at 3 PM this afternoon with IM Toradol and IM Benadryl apparently given. She continues to have migraine headaches about 1-2 times per month with last ER evaluation for similar symptoms about 3 weeks ago. She is having some mild photophobia with 3 episodes of emesis and some mild persistent nausea at this time. No recent history of abdominal pain, heartburn, diarrhea, melena, gross hematochezia, or any food intolerance, including fatty foods, etc.. She denies any gross hematuria, colic, or other UTI symptoms. The patient denies any chest pain/pressure, heart flutter, dizziness, orthostasis, orthopnea, diaphoresis, paresthesias, recent decreased exercise tolerance, or any other anginal-type symptoms. The patient also denies any recent fever, cough, wheezing, dyspnea, etc.. Onset: Gradual Onset Date: 05/26/20 Duration: Constant, Getting Worse Location: Reports: Head. Denies: Face, Neck, Chest, Abdomen, Back, Upper Extremity, Left, Upper Extremity, Right, Radiates to Quality: Reports: Same as Previous Episode, Throbbing Improves with: Reports: None Worsens with: Reports: None Context: Reports: Other (As above). Denies: Sick Contact, Trauma Associated Symptoms: Reports: Headaches, Nausea/Vomiting. Denies: Confusion, Chest Pain, Cough, Diaphoresis, Fever/Chills, Loss of Appetite, Rash, Seizure, Shortness of Breath, Syncope Right Temporal Headache Pain Score (Numeric/FACES): 9 - Related Data Allergies Allergy/AdvReac Type Severity Reaction Status Date / Time ciprofloxacin Allergy Other Verified 05/29/20 19:16 metoclopramide [From Reglan] Allergy Other Verified 05/29/20 19:16 Penicillins Allergy Hives Verified 05/29/20 19:16 Home Meds: Home Meds Escitalopram [Lexapro] 20 mg PO BEDTIME 06/20/16 [History] Multivitamins [Tab-A-Sarah] 3 tab PO DAILY 06/20/16 [History] Pramipexole Di-HCl [Mirapex] 0.5 mg PO BEDTIME 06/20/16 [History] estradioL [Climara] 1 each TD WEEKLY 10/24/19 [History] Acetaminophen [Acetaminophen Extra Strength] 2 tab PO Q6HR PRN 12/23/19 [History] Past Medical History HEENT History: Reports: Impaired Vision, Other (See Below). Denies: Allergic Rhinitis, Cataract, Glaucoma, Hard of Hearing, Macular Degeneration, Otitis Media, Retinal Detachment Other HEENT History: Patient wears glasses. Cardiovascular History: Reports: Arrhythmia, Hypertension, Other (See Below). Denies: Heart Murmur, High Cholesterol, [place], Syncope Other Cardiovascular History: Sinus bradycardia. Hypertension secondary to obesity. Respiratory History: Reports: None Gastrointestinal History: Reports: Cholelithiasis, Colon Polyp, GERD, Inflammatory Bowel Disease, Other (See Below) Other Gastrointestinal History: Nonspecific enteritis with benign hepatic cysts by CT scan on 06/23/17. GERD post gastric bypass by upper GI in 2018 as below. Tubular adenoma at the splenic flexure and polypoid polyp removed at 30 cm in the sigmoid colon in 2017 as below. Genitourinary History: Reports: UTI, Recurrent INVENTORY ADMINISTRATOR History: Reports: Dysfunctional Uterine Bleeding, Fibroids, Polycystic Ovaries, . Denies: Spontaneous : 1 Para: 1 LMP (Approximate): Other (See Below) Other INVENTORY ADMINISTRATOR History: Surgical menopause secondary to uterine fibroids and dysfunctional uterine bleeding Musculoskeletal History: Reports: Arthritis, Fracture, Osteoarthritis, Other (See Below) Other Musculoskeletal History: Left knee posterior cruciate ligamental tear by MRI in 2004 with surgery as below. Midshaft right fourth metacarpal fracture on 04/09/19. Neurological History: Reports: Headaches, Chronic, Migraines, Other (See Below) Other Neuro History: Restless leg syndrome Psychiatric History: Reports: Anxiety, Depression Other Psychiatric History: does have the restless leg syndrome Endocrine/Metabolic History: Reports: Obesity/BMI 30+, Other (See Below) Other Endocrine/Metabolic History: Previous obesity with status post gastric bypass Hematologic History: Reports: Anemia Immunologic History: Reports: None Oncologic (Cancer) History: Reports: Cervix, Other (See Below) Other Oncologic History: Abnormal Pap smear at age 17 with probable subsequent cryotherapy. Dermatologic History: Reports: None - Past Surgical History Head Surgeries/Procedures: Reports: None HEENT Surgical History: Reports: Adenoidectomy, Oral Surgery, Tonsillectomy, Other (See Below) Other HEENT Surgeries/Procedures: [place] teeth extraction. Tonsillectomy and adenoidectomy in September 2009. Respiratory Surgical History: Reports: None GI Surgical History: Reports: Bariatric Procedure, Cholecystectomy, Colonoscopy, Polypectomy, Other (See Below) Other GI Surgeries/Procedures: Colonoscopy with polypectomy 2 on 06/20/16. Female Surgical History: Reports: Cervical Cryotherapy, Hysterectomy, Mikie pingo-Oophorectomy, Tubal Ligation, Other (See Below) Other Female Surgeries/Procedures: Probable cryotherapy at age 17 as above. Complete hysterectomy with bilateral salpingo-oophorectomy on 03/08/19. Bilateral tubal ligation in February 2005. Musculoskeletal Surgical History: Reports: Arthroscopic Knee, Arthroscopic Procedure, Other (See Below) Other Musculoskeletal Surgeries/Procedures:: Arthroscopic patellar debridement of the left knee on 05/30/04. Previous left knee arthroscopic surgery in 2003 with bilateral arthroscopic knee surgeries in 2004? - Past Imaging History Past Imaging History: Reports: CAT Scan (CT of the head on 06/20/19. CT of the abdomen and pelvis on 06/23/17.), Mammogram (Last on 02/10/19.), MRI (Left knee on 04/17/04. Right elbow on 01/19/18. Left lower leg on 11/03/17.), Ultrasound (Pelvic ultrasound on 02/10/19, 05/30/16, 02/02/07, and 11/15/05. Thyroid ultrasound on 09/09/07.), Upper GI X-Ray/Series (Upper GI with small bowel series on 07/10/17) Social & Family History - Family History Family Medical History: No Pertinent Family History Cardiac: Reports: Afib, CAD, Other (See Below) Other Cardiac Family History: Father with atrial fibrillation. GI: Reports: Colon Polyps Musculoskeletal: Reports: Fibromyalgia Endocrine/Metabolic: Reports: Diabetes, type II, Other (See Below) Other Endocrine/Metabolic Family History: Father with AODM. Oncologic: Reports: Breast, Renal, Other (See Below) Other Oncologic Family History: Father with renal cancer. Mother with breast cancer at age 56. - Tobacco Use Tobacco Use Status *Q: Former Tobacco User Tobacco Use Within Last Twelve Months: No Years of Tobacco use: 9 Packs/Tins Daily: 1 Packs/Tins Daily Comment: Inconsistent history with patient stating she only smoked between ages 15 and 20. Used Tobacco, but Quit: Yes Smoking Cessation Information Provided To Patient: No Second Hand Smoke Exposure: No Second Hand Smoke Education Provided: No - Caffeine Use Caffeine Use: Reports: None - Living Situation & Occupation Occupation: Employed ([employer]) ED ROS GENERAL - Review of Systems Review Of Systems: Comprehensive ROS is negative, except as noted in HPI. - Physical Exam Exam: See Below Exam Limited By: No Limitations General Appearance: Alert, WD/WN, No Apparent Distress, Anxious (Mild to moderate) Eye Exam: Bilateral Eye: EOMI, Normal Fundi, Normal Inspection (Mild photophobia. No vertigo or nystagmus.), PERRL Ears: Normal External Exam, Normal Canal, Hearing Grossly Normal, Normal TMs Nose: Normal Inspection, Normal Mucosa, No Blood Throat/Mouth: Normal Inspection, Normal Lips, Normal Teeth, Normal Gums, Normal Oropharynx, Normal Voice, No Airway Compromise. No: Dysphagia, Perioral Cyanosis Head Exam: Atraumatic, Normocephalic. No: Facial Tenderness, Sinus Tenderness Neck: Normal Inspection, Supple, Non-Tender, Full Range of Motion. No: Carotid Bruit, Lymphadenopathy (L), Lymphadenopathy (R), Thyromegaly Respiratory/Chest: No Respiratory Distress, Lungs Clear, Normal Breath Sounds, No Accessory Muscle Use, Chest Non-Tender. No: Pleural Rub, Retractions Cardiovascular: Normal Peripheral Pulses, Regular Rate, Rhythm, No Edema, No Gallop, No JVD, No Murmur, No Rub. No: Bradycardia (Resolved at time of exam), Gallop/S3, Gallop/S4, Friction Rub GI/Abdominal: Normal Bowel Sounds, Soft, Non-Tender, No Organomegaly, No Distention, No Abnormal Bruit, No Mass. No: Guarding (Female) Exam: Deferred Rectal (Female) Exam: Deferred Neuro Exam (Abbreviated): Alert, Oriented, CN II-XII Intact, Normal Cognition, Normal Gait, Normal Reflexes, No Motor/Sensory Deficits Back Exam: Normal Inspection, Full Range of Motion. No: CVA Tenderness (L), CVA Tenderness (R), Muscle Spasm Extremities: Normal Inspection, Normal Range of Motion, Non-Tender, No Pedal Edema, Normal Capillary Refill. No: Mat's Sign Psychiatric: Anxious (Mild to moderate), Depressed Mood (Borderline) Skin Exam: Warm, Dry, Intact, Normal Color, No Rash. No: Ecchymosis, Wound/Incision Course - Vital Signs Last Recorded V/S: Last Vital Signs Temp 36.9 C 05/29/20 20:17 Pulse 56 L 05/29/20 20:17 Resp 20 05/29/20 20:17 BP 126/61 05/29/20 20:17 Pulse Ox 96 05/29/20 20:17 Vital Signs - 24 hr 05/29/20 20:17 Temperature [ 36.9 C Temporal] Pulse, 56 L Peripheral [ Left Brachial] Respiratory 20 Rate Blood Pressure 126/61 [Left Upper Arm ] O2 Sat by Pulse 96 Oximetry - Orders/Labs/Meds Orders: Active Orders 24 hr Category Date Time Status Obtain Past Medical Record [OM.PC] Routine Oth 05/29/20 19:18 Active Peripheral IV Insertion Adult [OM.PC] Routine Oth 05/29/20 19:18 Ordered Labs: None Meds: Medications Discontinued Medications Generic Name Dose Route Start Last Admin Trade Name Curly PRN Reason Stop Dose Admin Diazepam 2.5 mg 05/29/20 19:18 05/29/20 19:58 Valium IVPUSH 05/29/20 19:19 2.5 mg ONETIME ONE Administration Diphenhydramine HCl 50 mg 05/29/20 19:18 05/29/20 19:46 Benadryl IVPUSH 05/29/20 19:19 50 mg ONETIME ONE Administration Hydromorphone HCl 0.5 mg 05/29/20 19:19 05/29/20 19:49 Dilaudid IVPUSH 05/29/20 19:20 0.5 mg ONETIME ONE Administration Metoclopramide HCl 20 mg 05/29/20 19:19 02/22/21 20:11 Reglan IVPUSH 05/29/20 19:20 Not Given ONETIME ONE Ondansetron HCl 4 mg 05/29/20 19:44 05/29/20 20:00 Zofran IVPUSH 05/29/20 19:45 4 mg ONETIME ONE Administration Sodium Chloride 10 ml 05/29/20 19:18 05/29/20 19:56 Saline Flush FLUSH 10 ml ASDIRECTED PRN Administration Keep Vein Open - Radiology Interpretation Free Text/Narrative:: None Departure - Departure Time of Disposition: 20:45 Disposition: Home, Self-Care 01 Condition: Good Clinical Impression: Mixed anxiety depressive disorder, Migraine Hypertension Qualifiers: Hypertension type: essential hypertension Qualified Code(s): I10 - Essential (primary) hypertension - Discharge Information *PRESCRIPTION DRUG MONITORING PROGRAM REVIEWED*: Not Applicable *COPY OF PRESCRIPTION DRUG MONITORING REPORT IN PATIENT [place]: Not Applicable Instructions: Recurrent Migraine Headache, [id number] Referrals: PCP,None [Primary Care Provider] - Forms: ED Department Discharge, ED Return to Work/School Form Additional Instructions: 1. Follow up with your regular provider in 7-10 days as directed for reevaluation and discussion of recurrent migraine headaches. Consider discussion of adjustment of your medical therapy for prevention of frequent migraine attacks at that time. Bring these discharge instructions with you to that visit. 2. Tylenol 1000 mg by mouth every 6 hours and/or OTC ibuprofen 2-3 tabs by mouth every 6 hours with food as directed./needed. You may stagger these medications for 48-72 hours only, which essentially means that you are receiving a pain medication about every 2 hours. 3. Sedation precautions with no driving, etc. for 18 hours because of emergency room medications. 4. Ice packs to head and neck, dark and quiet room, etc. as directed until headache resolves. 5. Work excuse- See Form. 6. Immediately after this visit verify that your cellular telephone's voicemail has been activated and is empty. Also verify that your home telephone's answering machine is operating properly and has space to receive messages. Note that it is sometimes necessary for us to be able to contact you at a later date to discuss your medical care. 7. Please remember that we are ALWAYS here for you and want to answer any questions you may have. Feel free to call the hospital any time and we call you back ANA. Sepsis Event Note (ED) - Focused Exam Vital Signs: Vital Signs Temp Pulse Resp BP Pulse Ox 05/29/20 20:17 36.9 C 56 L 20 126/61 96 - Problem List & Annotations (1) Migraine SNOMED Code(s): 07373595 Code(s): G43.909 - MIGRAINE, UNSP, NOT INTRACTABLE, WITHOUT STATUS MIGRAINOSUS Status: Acute Priority: High Onset Date: 10/24/19 Annotation/Comment:: Note mixed migraine tension headache components. Overall good results with treatment as above. Patient had a previous intolerance to Reglan i.e., shaky legs and anxiety, with the patient refusing this medication. She did respond to IV Zofran as above. A friend did drive her home with sedation precautions given. She was once again counseled on the risks of hormone replacement therapy with her recurrent migraine headaches, however she has yet to discuss this further with her regular provider. Secondary to recurrent ER evaluations for migraine headache and current frequency of 1-2 episodes per month she should have close follow-up with her regular provider. Initiation of prophylactic medication treatment is strongly advisable. Work excuse provided. (2) Hypertension SNOMED Code(s): 24901582 Code(s): I10 - ESSENTIAL (PRIMARY) HYPERTENSION Status: Chronic Priority: Medium Annotation/Comment:: No current medical therapy. Apparently resolved after gastric bypass and weight loss. Continue to observe closely by her regular provider. Qualifiers: Hypertension type: essential hypertension Qualified Code(s): I10 - Essential (primary) hypertension (3) Mixed anxiety depressive disorder SNOMED Code(s): 366681797 Code(s): F41.8 - OTHER SPECIFIED ANXIETY DISORDERS Status: Chronic Priority: Medium Annotation/Comment:: Moderate control based on today's exam. Otherwise stable by history. Continue to observe closely by her regular provider. - Problem List Review Problem List Initiated/Reviewed/Updated: Yes - My Orders Last 24 Hours: My Active Orders 05/29/20 19:18 Obtain Past Medical Record [OM.PC] Routine Peripheral IV Insertion Adult [OM.PC] Routine - Assessment/Plan Last 24 Hours: My Active Orders 05/29/20 19:18 Obtain Past Medical Record [OM.PC] Routine Peripheral IV Insertion Adult [OM.PC] Routine Assessment:: As above Plan: As above. Extensive precautions were given to the patient, who is in agreement with the treatment plan. See Patient Instructions for further treatment and plan.
[2020-05-29] MEDS ORDERED: Sodium Chloride 0.9% 10 ML Syringe FLUSH PRN (19:18)
[2020-05-29] MEDS ORDERED: diphenhydrAMINE 50 MG/ML SDV IVPUSH ONE (19:18)
[2020-05-29] MEDS ORDERED: Metoclopramide 10 MG/2 ML SDV IVPUSH ONE (19:19)
[2020-05-29] MEDS ORDERED: HYDROmorphone 0.5 MG/0.5 ML Syringe IVPUSH ONE (19:19)
[2020-05-29] MEDS ORDERED: Ondansetron 4 MG/2 ML SDV IVPUSH ONE (19:44)
[2020-05-29 20:18] VITALS: BP 126/61; PULSE 56
== END 2020-05-29 20:45 | disposition home or self-care (01) ==
LOC: LL.ED 19:08
DX: G43.909 Migraine, unspecified, not intractable, without status migrainosus (principal); I10 Essential (primary) hypertension; F41.8 Other specified anxiety disorders; E66.9 Obesity, unspecified; Z68.28 Body mass index [BMI] 28.0-28.9, adult; Z87.891 Personal history of nicotine dependence; Z88.1 Allergy status to other antibiotic agents; Z88.0 Allergy status to penicillin; Z88.8 Allergy status to other drugs, medicaments and biological substances; Z79.899 Other long term (current) drug therapy
CPT/HCPCS: 96374; 96375; 99283; 99283-25; J1170; J1200; J2405; J3360

== ENCOUNTER 2020-07-27 08:09 | Day surgery (SDC) | payer BC ==
[~2020-07-27 08:09] MED LIST: Lactated Ringers 1,000 ML IV SCH; Sodium Chloride 0.9% 10 ML Syringe FLUSH PRN
[2020-07-27] MEDS ORDERED: Midazolam 1 MG/ML 2 ML SDV ONE ×2 (08:27→08:59)
[2020-07-27] MEDS ORDERED: Propofol 200 MG/20 ML SDV ONE ×2 (08:28→08:59)
--- NOTE | 2020-07-27 09:53 | PCM.PN ---
- General Info Date of Service: 07/27/20 - Review of Systems Systems Review Comment:: 45-year-old female with history of colon polyps here for surveillance colonoscopy. She denies any change in bowel pattern since her last colonoscopy. She is medically stable to proceed today. Her recent history and physical is reviewed and no significant changes are noted. I have discussed the proposed colonoscopy with the patient. She agrees to proceed. She accepts risks. - Patient Data Vitals - Most Recent: Last Vital Signs Temp 96.9 F 07/27/20 09:36 Pulse 52 L 07/27/20 09:36 Resp 16 07/27/20 09:36 BP 122/80 07/27/20 09:36 Pulse Ox 99 07/27/20 09:36 Weight - Most Recent: 80.739 kg Med Orders - Current: Current Medications Lactated Ringer's (Ringers, Lactated) 1,000 mls @ 125 mls/hr IV ASDIRECTED LING Last Admin: 07/27/20 08:40 Dose: 125 mls/hr Documented by: Sodium Chloride (Sodium Chloride 0.9% 10 Ml Syringe) 10 ml FLUSH ASDIRECTED PRN PRN Reason: Keep Vein Open Discontinued Medications Midazolam HCl (Midazolam 1 Mg/Ml 2 Ml Sdv) Confirm Administered Dose 2 mg .ROUTE .STK-MED ONE Stop: 07/27/20 08:28 Propofol (Propofol 200 Mg/20 Ml Sdv) Confirm Administered Dose 400 mg .ROUTE .STK-MED ONE Stop: 07/27/20 08:29 Sepsis Event Note - Focused Exam Vital Signs: Vital Signs Temp Pulse Resp BP Pulse Ox 07/27/20 09:36 96.9 F 52 L 16 122/80 99 07/27/20 08:29 97.9 F 58 L 16 118/77 100 - Problem List Review Problem List Initiated/Reviewed/Updated: Yes - Assessment Assessment:: History of colon polyps - Plan Plan:: Colonoscopy
--- NOTE | 2020-07-27 09:55 | PCM.OPNOTE ---
- General Post-Op/Procedure Note Date of Surgery/Procedure: 07/27/20 Operative Procedure(s): Colonoscopy Findings: Normal Colon Pre Op Diagnosis: history of colon polyps Post-Op Diagnosis: Normal Colon Anesthesia Technique: MAC Primary Surgeon: Faisal Dawson Pathology: none EBL in mLs: 0 Complications: None Condition: Good
[2020-07-27 10:13] VITALS: BP 126/79; PULSE 63
--- NOTE | 2020-07-31 08:24 | OR ---
Date of Procedure: 07/27/2020 PREOPERATIVE DIAGNOSIS: History of colon polyps. POSTOPERATIVE DIAGNOSIS: Normal colon. OPERATION PERFORMED: Colonoscopy. INDICATIONS FOR SURGERY: This 45-year-old female has a known history of colon polyps. She has not had any recent change in bowel pattern, but comes today for surveillance colonoscopy. FINDINGS: The patient's colon appears normal. No polyps or other lesions were seen. DESCRIPTION OF PROCEDURE: The patient was taken to the operating room. She was given intravenous sedation, and with her in the left lateral decubitus position, digital rectal exam was performed showing no rectal masses. The Olympus colonoscope was inserted into the rectum. Retroflexed examination of the rectal canal was performed. The scope was then carefully advanced under direct visualization through the entire length of the colon until the cecum was reached. Cecal acquisition was confirmed by noting the normal internal cecal anatomy including the appendiceal orifice and the ileocecal valve. The light was also noted to transilluminate the abdominal wall in the right lower quadrant. The ileocecal valve was cannulated and the terminal ileum examined and appeared normal. The scope was then slowly withdrawn sequentially re- examining the colonic segments until the entire colon and rectum had been fully examined. The scope was removed and the patient was taken from the operating room in satisfactory condition. ESTIMATED BLOOD LOSS: 0. COMPLICATIONS: None. PROGNOSIS: Good. LIU Dawson MD /[id number]
== END 2020-07-27 10:36 | disposition home or self-care (01) ==
LOC: LL.SDS 08:09
PROVIDERS: ATTEND Surgery
CPT/HCPCS: 00812; J2250; J2704; J7120; U0002